=== PATIENT | female | born 1950 | race Caucasian/White ===

== ENCOUNTER 2019-07-15 18:44 | Inpatient (IN) ==
[2019-07-15 22:24] LABS: ABG Base Excess 7 mEq/L (-2 to 3); ABG HCO3 35 mEq/L (21-27); ABG Oxygen Saturation 91 % (95-98); ABG PCO2 61 mmHg (35-45); ABG PH 7.37 pH Units (7.32-7.45); ABG PO2 64 mmHg (85-104); ABG TCO2 37 mEq/L (20-26); Blood Gas Modality ASSIST CONTROL; Blood Gas PEEP 5 cm H2O; Blood Gas VT 450 cc
[2019-07-15] MEDS: Ipratropium/Albuterol Neb 3 ML IH SCH (22:29)
--- NOTE | 2019-07-15 22:30 | Internal Med History&Physical ---
Date of Encounter: 07/15/19 Time of Encounter: 22:18 Internal Medicine - H&P: HPI Chief complaint: SOB History of present illness: Ms. Hanks is a 69 year old female with a past medical history of severe COPD O2 dependent on 3 L home oxygen, CHF, active smoker, hypertension, and Graves' disease who initially presented to Hospital ED with complaints of worsening shortness of breath associated with increased wheezing and cough. Patient noted to be in moderate respiratory distress with diffuse wheezing on arrival. Patient had been placed on CPAP by EMS en route. Patient reportedly became progressively tachypneic while in the ED. Apparently failed trial of BiPAP and subsequently intubated. ABG was obtained showing pH of 7.25 and PCO2 of 95 suggestive of hypercapnic respiratory failure. Blood pressure transiently dropped shortly after intubation with propofol for sedation and central IJ catheter was placed and patient was started on levofed. Patient was given DuoNeb's 1, Solu-Medrol 125 2 g of magnesium and Levaquin IV. Patient transferred to [facility] for further management. On arrival patient was intubated and sedated on propofol. Patient was given paralytic and fentanyl in route due to increased arousal and agitation. On arrival patient was hypertensive with a systolic blood pressure in the 160s, currently off pressor support. Vitals otherwise stable. We will continue management of likely COPD exacerbation. Internal Medicine - H&P: Meds ALPRAZolam [Xanax 0.25 MG Tablet] 0.25 mg PO TID PRN 07/16/19 [History] Acetylcysteine [S-Wlerbp-l-Cysteine] 600 mg PO BID 07/16/19 [History] Albuterol Sulfate [Ventolin Hfa] 2 puff PO QID PRN 07/16/19 [History] Aspirin 81 mg PO DAILY 07/16/19 [History] Azithromycin [Azithromycin 6-Tab Pack] 250 mg PO AD 07/16/19 [History] Budesonide/Formoterol 160/4.5 [Symbicort 160/4.5] 2 puff PO BID 07/16/19 [History] Furosemide [Lasix] 40 mg PO Q48H 07/16/19 [History] Ipratropium/Albuterol Neb [Duoneb] 3 ml IH QID PRN 07/16/19 [History] Levothyroxine [Synthroid] 75 mcg PO QAM 07/16/19 [History] Metoprolol Succinate [Toprol Xl] 100 mg PO BID 07/16/19 [History] Montelukast [Singulair] 10 mg PO DAILY PRN 07/16/19 [History] Potassium Chloride [Klor-Con 10] 10 meq PO Q48H 07/16/19 [History] Simvastatin [Zocor] 20 mg PO HS 07/16/19 [History] Umeclidinium [place] [Incruse Ellipta] 62.5 mcg IH DAILY 07/16/19 [History] amLODIPine [Norvasc] 5 mg PO DAILY 07/16/19 [History] Allergy/AdvReac Type Severity Reaction Status Date / Time No Known Allergies Allergy Verified 07/15/19 22:35 All Systems PM: A 10-system review of systems was performed and is negative for pertinent findings except as documented above in the HPI. - Constitutional Constitutional: no chills, no fever(s), no night sweats - EENT Eyes: no change in vision, no discharge, no pain, no photophobia Ears: no ear discharge, no ear pain, no tinnitus Nose, mouth and throat: no dysphagia, no nasal discharge, no neck pain, no sore throat - Cardiovascular Cardiovascular ROS IM: no chest pain, no diaphoresis, no dyspnea, no lightheadedness, no palpitations, no syncope - Respiratory Respiratory: no cough, no dyspnea, no wheezing, no excessive phlegm production - Gastrointestinal Gastrointestinal: no abdominal pain, no diarrhea, no hematemesis, no hematochezia, no melena, no nausea, no vomiting - Genitourinary Genitourinary: no change in urinary stream, no dysuria, no flank pain, no hematuria - Musculoskeletal Musculoskeletal ROS IM: no numbness, no tingling - Integumentary Integumentary IM: no rash, no unusual bruising - Neurological Neurological ROS: no confusion, no convulsions, no focal weakness, no numbness, no tingling, no tremor(s) - Hematologic/Lymphatic Hematologic/Lymphatic: no easy bruising - Constitutional Vitals: Resp Pulse Ox 16 99 07/15/19 21:55 07/15/19 21:55 Exam: General: Alert and oriented Skin:Normal color, no rash, no lesions. HEENT:EOM, pupils equal, round and reactive. Cardiovascular:Normal S1 & S2, no rubs, murmurs or gallops. No JVD. Pulse regular. Lungs:Normal breath sounds, no wheezes or crackles. Abdomen:Soft, non-tender, no rigidity. Extremities:No deformity, no edema or tenderness, no joint swelling or clubbing. Neurological:Normal cognition and motor skills. Pulses:Carotid and radial pulses normal +2. Rest of the physical exam is non contributory Internal Med - H&P Results - Labs CBC & Chem 7: 07/15/19 22:05 07/15/19 22:05 - Assessment and Plan (1) Acute respiratory failure with hypercapnia Current Visit: Yes Status: Acute Assessment and plan: ABG showing pH 7.25 and PCO2 of 95 in the setting of increased shortness of breath, wheezing and tachypnea consistent acute respiratory failure with hypercapnia secondary to COPD exacerbation status post intubation. -Continue mechanical ventilation -Repeat ABG and adjust ventilation settings accordingly -Continue management for COPD exacerbation (2) COPD exacerbation Current Visit: Yes Status: Acute Assessment and plan: History of O2 dependent COPD currently on 3 L nasal cannula at home presenting with findings consistent with COPD exacerbation with increased wheezing, cough and CO2 retention. Chest x-ray otherwise unremarkable. Patient had pulmonary function testing in 2018 which at this time showed severe to very severe airway obstruction with minimal response to bronchodilators. Although patient has documentation in her records as being an active smoker, I spoke with patient's granddaughter who stated that she currently lives with her uncle and as far as a no there been no reports of her smoking as of late. Unclear if there was a precipitating event however chest x-ray did not reveal any evidence of pne umonia. She does have a mild leukocytosis of 14. -Continue ventilation support -Repeat ABG -Continue scheduled duonebs -Continue steroids; monitor blood sugars -We will transition to azithromycin for antibiotic coverage. -We will obtain pro- calcitonin, respiratory viral panel, blood cultures and urine antigens -Consult to pulmonary critical care (3) Hypotension Current Visit: Yes Status: Acute Assessment and plan: Patient reported to be hypotensive status post intubation and sedation with propofol which I suspect was likely contributing to her hypotension.. On arrival patient was off pressors and is currently hypertensive with a systolic in the 160s. -At this time we will hold pressure support Qualifiers: Hypotension type: hypotension due to drug Qualified Code(s): I95.2 - Hypotension due to drugs (4) Hypertension Current Visit: Yes Status: Chronic Assessment and plan: History of hypertension. Currently hypertensive. -We will continue propofol and monitor blood pressure closely Qualifiers: Hypertension type: essential hypertension Qualified Code(s): I10 - Essential (primary) hypertension (5) Graves disease Current Visit: Yes Status: Acute (6) DVT prophylaxis Current Visit: Yes Status: Acute Assessment and plan: Subcutaneous heparin Over 30 minutes of critical care time was spent in the management of this patient - Time Spent With Patient Total time spent is greater than 50% in coordination of care (as documented) at patient's floor/unit and/or counseling patient:
[2019-07-15] MEDS: MethylPREDNISolone 40 MG/ML VIAL IVP SCH (23:06)
[2019-07-15] MEDS: *HR* Heparin 5,000 UNIT/ML VIAL SQ SCH (23:06)
[2019-07-15 23:30] LABS: Basophils % 0.2 %; Hematocrit 40.1 % (35.3-44.9); Hemoglobin 12.3 g/dL (11.5-15.4); Immature Granulocytes % 1.1 % (0-4); Lymphocytes # 0.4 K/mcL (0.6-4.6); Lymphocytes % 4.2 %; Mean Corpuscular HGB Conc 30.7 g/dL (31.6-35.5); Mean Corpuscular Hemoglobin 29.4 pg (28.0-33.3); Mean Corpuscular Volume 95.9 fL (83.0-100.0); Mean Platelet Volume 9.9 fL (9.4-12.4); Monocytes # 0.1 K/mcL (0.0-1.3); Monocytes % 1.1 %; Neutrophils # 9.7 K/mcL (1.6-8.9); Platelet Count 238 K/mcL (140-400); Red Blood Count 4.18 M/mcL (3.82-4.97); Red Cell Distribution Width 14.6 % (11.5-14.5); Segmented Neutrophils % 93.4 %; White Blood Count 10.3 K/mcL (4.3-11.1)
[2019-07-15 23:32] LABS: Bilirubin,Urine Negative (Negative); Blood,Urine Large (Negative); Clarity,Urine Clear (Clear); Color,Urine Yellow (Yellow); Glucose,Urine (UA) 100 mg/dL (Normal); Ketones,Urine 15 mg/dL (Negative); Leukocyte Esterase,Urine Negative (Negative); Nitrite,Urine Negative (Negative); PH,Urine 5.5 pH Units (5.0-8.0); Protein,Urine 30 mg/dL (Neg-Trace); Specific Gravity,Urine 1.022 (1.010-1.025); Urobilinogen,Urine Normal (Normal)
[2019-07-15 23:33] LABS: RBC,Urine 30-50 per hpf (0-3); Squamous Epithelial Cell,Urine Many per lpf (None-Few); WBC,Urine 0-3 per hpf (0-3)
[2019-07-15 23:38] LABS: INR 1.1; Prothrombin Time 12.8 Seconds (9.4-12.1)
[2019-07-15 23:40] LABS: Activated Partial Thrombo Time 33.5 Seconds (26.0-36.0)
[2019-07-15 23:45] LABS: Bacteria,Urine Few per hpf (None-Few); Hyaline Casts,Urine Moderate per lpf (None-Few)
[2019-07-15 23:48] LABS: Alanine Aminotransferase 11 Units/L (7-52); Albumin/Globulin Ratio 1.5 (1.1-2.2); Alkaline Phosphatase 73 Units/L (34-104); Aspartate Amino Transferase 15 Units/L (13-39); BUN/Creatinine Ratio 20 (6-26); Bilirubin,Total 0.6 mg/dL (0.3-1.0); Blood Urea Nitrogen 15 mg/dL (8-23); Calcium 8.3 mg/dL (8.6-10.3); Carbon Dioxide 33 mEq/L (23-29); Chloride 98 mEq/L (98-107); Globulin 2.6 g/dL (2.4-3.5); Glucose 150 mg/dL (70-105); Osmolality,Calculated 294 (280-300); Sodium 140 mEq/L (136-145); Total Protein 6.6 g/dL (6.4-8.9); eGFR For African Americans > 60 (> 60); eGFR For Non-African Americans > 60 (> 60)
[2019-07-16 01:57] LABS: Adenovirus Not Detected (Not Detect); Bordetella Pertussis Not Detected (Not Detect); Chlamydophila pneumoniae Not Detected (Not Detect); Coronavirus 229E Not Detected (Not Detect); Coronavirus HKU1 Not Detected (Not Detect); Coronavirus NL63 Not Detected (Not Detect); Coronavirus OC43 Not Detected (Not Detect); Human Metapneumovirus Not Detected (Not Detect); Human Rhinovirus/Enterovirus DETECTED (Not Detect); Influenza A Subtype 2009 H1 Not Detected (Not Detect); Influenza A Untypeable Not Detected (Not Detect); Influenza B Not Detected (Not Detect); Mycoplasma pneumoniae Not Detected (Not Detect); Parainfluenza Virus 1 Not Detected (Not Detect); Parainfluenza Virus 2 Not Detected (Not Detect); Parainfluenza Virus 3 Not Detected (Not Detect); Parainfluenza Virus 4 Not Detected (Not Detect); Respiratory Syncytial Virus Not Detected (Not Detect)
[2019-07-16] MEDS: Ipratropium/Albuterol Neb 3 ML IH SCH ×4 (03:42→22:06)
[2019-07-16 05:05] LABS: ABG Base Excess 9 mEq/L (-2 to 3); ABG HCO3 36 mEq/L (21-27); ABG Oxygen Saturation 93 % (95-98); ABG PCO2 61 mmHg (35-45); ABG PH 7.39 pH Units (7.32-7.45); ABG PO2 69 mmHg (85-104); ABG TCO2 38 mEq/L (20-26); Blood Gas Modality PRVC; Blood Gas PEEP 5 cm H2O; Blood Gas VT 450 cc
[2019-07-16] MEDS: *HR* Heparin 5,000 UNIT/ML VIAL SQ SCH ×3 (05:09→22:09)
[2019-07-16] MEDS: MethylPREDNISolone 40 MG/ML VIAL IVP SCH ×3 (05:09→22:09)
[2019-07-16] MEDS: Azithromycin 500 MG in 0.9 % Sodium Chloride 250 ML IVPB SCH (08:40)
[2019-07-16] MEDS ORDERED: Artificial Tears SOLN 15 ML BOTTLE BOTH EYES PRN (09:15)
--- NOTE | 2019-07-16 09:43 | Pulmonology Consult Note ---
<Alejandro Kim - Last Filed: 07/16/19 12:05> Date of Encounter: 07/16/19 Time of Encounter: 09:41 History of Present Illness Consult date: 07/16/19 Reason for consult: dyspnea, cough, COPD Chief complaint: Respiratory failure History of present illness: Patient is a 69-year-old female with a past medical history of COPD, CHF, hypertension and Graves' disease on 3 L home oxygen via nasal cannula, the patient also takes acetylcysteine, DuoNeb nebs, Lasix, Symbicort, Synthroid, Ventolin and Singulair for home medications. The patient presented to an outside ED due to recent worsening shortness of breath as well as wheezing and cough patient was CPAP by EMS in route to the hospital but was not tolerating the BiPAP well patient was noted to be tachypneic with hypercapnic respiratory failure and thus was emergently intubated in the ED. The patient was noted to be hypotensive likely due to paralysis and sedation and thus a central right sided internal jugular catheter was placed and the patient was started on Levophed drip. Patient was then transferred to [facility] ICU for further management. Upon my initial evaluation this morning the patient is intubated and mechanically sedated, she is noted to have significant exophthalmos consistent with her history of Graves' disease. Cardiac auscultation reveals regular rate and rhythm no murmurs gallops or rubs S1 plus S2 without S3 or S4, there is diffuse wheezing noted to pulmonary auscultation in all lobes. Patient's abdomen soft nontender nondistended, no evidence of peripheral edema pulses are strong. Assessment and plan: 1 acute rest for a failure with hypercapnia. ABG shows respiratory acidosis likely secondary to COPD exacerbation in the sett ing of rhinovirus infection. Continue mechanical ventilation with repeat ABGs. Continue nebulizers plus steroids. 2. COPD exacerbation. Patient with severe COPD on 3 L nasal cannula at home See plan as stated above Azithromycin for antibiotic anti-inflammatory coverage 3. Hypotension. Likely secondarily to intubation and sedation with paralysis. Patient's vitals are currently stable. 4. Graves' disease: Check TSH, T3/T4 Hold levothyroxine likely will restart tomorrow. 5. DVT prophylaxis: Subcutaneous heparin 5000 units 3 times a day. Past Med Surg Social Fam HX - Social History Smoking Status: Former smoker Medications and Allergies ALPRAZolam [Xanax 0.25 MG Tablet] 0.25 mg PO TID PRN 07/16/19 [History] Acetylcysteine [X-Ivauqx-n-Cysteine] 600 mg PO BID 07/16/19 [History] Albuterol Sulfate [Ventolin Hfa] 2 puff PO QID PRN 07/16/19 [History] Aspirin 81 mg PO DAILY 07/16/19 [History] Azithromycin [Azithromycin 6-Tab Pack] 250 mg PO AD 07/16/19 [History] Budesonide/Formoterol 160/4.5 [Symbicort 160/4.5] 2 puff PO BID 07/16/19 [History] Furosemide [Lasix] 40 mg PO Q48H 07/16/19 [History] Ipratropium/Albuterol Neb [Duoneb] 3 ml IH QID PRN 07/16/19 [History] Levothyroxine [Synthroid] 75 mcg PO QAM 07/16/19 [History] Metoprolol Succinate [Toprol Xl] 100 mg PO BID 07/16/19 [History] Montelukast [Singulair] 10 mg PO DAILY PRN 07/16/19 [History] Potassium Chloride [Klor-Con 10] 10 meq PO Q48H 07/16/19 [History] Simvastatin [Zocor] 20 mg PO HS 07/16/19 [History] Umeclidinium [place] [Incruse Ellipta] 62.5 mcg IH DAILY 07/16/19 [History] amLODIPine [Norvasc] 5 mg PO DAILY 07/16/19 [History] Allergy/AdvReac Type Severity Reaction Status Date / Time No Known Allergies Allergy Verified 07/15/19 22:35 ROS unobtainable: due to endotracheal tube, due to mental status All Systems: The remainder of the systems were reviewed and are negative Physical Examination Vital Signs: Vital Signs, Last 4 Hours Temp Pulse Resp BP Pulse Ox 07/16/19 09:12 16 118/63 94 07/16/19 09:00 98.8 F 93 17 118/63 96 07/16/19 08:00 98.4 F 89 16 105/60 98 07/16/19 07:16 16 109/63 97 07/16/19 07:00 92 16 109/63 98 07/16/19 06:00 92 16 110/62 95 General appearance: no acute distress, other (Intubated and mechanically ventilated) Eyes: nonicteric, injected ENT: oropharynx moist Auscultation: bilateral: wheezes Cardiovascular: regular rate and rhythm Gastrointestinal: normoactive bowel sounds, soft, non-tender, non-distended Integumentary: normal Extremities: no cyanosis, pulses normal, no ischemia or petechiae pupils equal and round, unable to assess due to mental status Ventilator Settings Ventilator Settings: Ventilator Settings, Last 8 Hours Ventilator Tidal Volume 400 Setting Ventilator Tidal Volume 400 Setting Ventilator Tidal Volume 400 Setting Ventilator Tidal Volume 450 Setting Ventilator Tidal Volume 450 Setting Ventilator Tidal Volume 450 Setting Ventilator Tidal Volume 450 Setting Ventilator Tidal Volume 450 Setting Ventilator Tidal Volume 450 Setting Ventilator Tidal Volume 450 Setting Ventilator Tidal Volume 400 Setting Ventilator Tidal Volume 400 Setting Ventilator Tidal Volume 400 Setting Ventilator Tidal Volume 400 Setting Ventilator Respiratory Rate 16 Setting Ventilator Respiratory Rate 16 Setting Ventilator Respiratory Rate 16 Setting Ventilator Respiratory Rate 16 Setting Ventilator Respiratory Rate 16 Setting Ventilator Respiratory Rate 16 Setting Ventilator Respiratory Rate 16 Setting Ventilator Respiratory Rate 16 Setting Ventilator Respiratory Rate 16 Setting Ventilator Respiratory Rate 16 Setting Ventilator Respiratory Rate 16 Setting Ventilator Respiratory Rate 16 Setting Ventilator Respiratory Rate 16 Setting Actual Respiratory Rate 16 Actual Respiratory Rate 16 Actual Respiratory Rate 16 Actual Respiratory Rate 16 Actual Respiratory Rate 16 Actual Respiratory Rate 16 Actual Respiratory Rate 16 Actual Respiratory Rate 16 Actual Respiratory Rate 16 Actual Respiratory Rate 18 Actual Respiratory Rate 16 Actual Respiratory Rate 16 Positive End Expiratory 5 Pressure Positive End Expiratory 5 Pressure Positive End Expiratory 5 Pressure Positive End Expiratory 5 Pressure Positive End Expiratory 5 Pressure Positive End Expiratory 5 Pressure Positive End Expiratory 5 Pressure Positive End Expiratory 5 Pressure Positive End Expiratory 5 Pressure Positive End Expiratory 5 Pressure Positive End Expiratory 5 Pressure Positive End Expiratory 5 Pressure Positive End Expiratory 5 Pressure Peak Inspiratory Airway 27 Pressure Peak Inspiratory Airway 28 Pressure Peak Inspiratory Airway 27 Pressure Peak Inspiratory Airway 28 Pressure Peak Inspiratory Airway 28 Pressure Peak Inspiratory Airway 29 Pressure Peak Inspiratory Airway 28 Pressure Peak Inspiratory Airway 28 Pressure Peak Inspiratory Airway 34 Pressure Peak Inspiratory Airway 48 Pressure Peak Inspiratory Airway 36 Pressure Peak Inspiratory Airway 31 Pressure Results - Laboratory Findings CBC and BMP: 07/15/19 22:05 07/15/19 22:05 ABG ABG pH 7.39 pH Units (7.32-7.45) 07/16/19 05:02 ABG pCO2 61 mmHg (35-45) H 07/16/19 05:02 ABG pO2 69 mmHg (85-104) L 07/16/19 05:02 ABG O2 Saturation 93 % (95-98) L 07/16/19 05:02 PT/INR, D-dimer PT 12.8 Seconds (9.4-12.1) H 07/15/19 22:17 Abnormal lab findings: Abnormal lab results MCHC 30.7 g/dL (31.6-35.5) L 07/15/19 22:05 RDW 14.6 % (11.5-14.5) H 07/15/19 22:05 Neutrophils # 9.7 K/mcL (1.6-8.9) H 07/15/19 22:05 Lymphocytes # 0.4 K/mcL (0.6-4.6) L 07/15/19 22:05 PT 12.8 Seconds (9.4-12.1) H 07/15/19 22:17 ABG pCO2 61 mmHg (35-45) H 07/16/19 05:02 ABG pO2 69 mmHg (85-104) L 07/16/19 05:02 ABG HCO3 36 mEq/L (21-27) H 07/16/19 05:02 ABG Total CO2 38 mEq/L (20-26) H 07/16/19 05:02 ABG O2 Saturation 93 % (95-98) L 07/16/19 05:02 ABG Base Excess 9 mEq/L (-2 to 3) H 07/16/19 05:02 Carbon Dioxide 33 mEq/L (23-29) H 07/15/19 22:05 Glucose 150 mg/dL (70-105) H 07/15/19 22:05 POC Glucose 167 mg/dL (70-99) H 07/15/19 21:55 Calcium 8.3 mg/dL (8.6-10.3) L 07/15/19 22:05 B-Natriuretic Peptide 126 pg/mL (Less than 100) H 07/15/19 22:18 Urine Protein 30 mg/dL (Neg-Trace) H 07/15/19 23:21 Urine Glucose (UA) 100 mg/dL (Normal) H 07/15/19 23:21 Urine Ketones 15 mg/dL (Negative) H 07/15/19 23:21 Urine Blood Large (Negative) H 07/15/19 23:21 Urine Microscopic RBC 30-50 per hpf (0-3) H 07/15/19 23:21 Ur Squamous Epith Cells Many per lpf (None-Few) H 07/15/19 23:21 Hyaline Casts Moderate per lpf (None-Few) H 07/15/19 23:21 Entero/Rhino (PCR) DETECTED (Not Detect) A 07/16/19 00:16 - Microbiology Findings Microbiology Findings: Microbiology, Last 48 Hours 07/15/19 23:21 Sputum Culture - Preliminary Sputum 07/15/19 23:46 Blood Culture - Preliminary Peripheral Venipuncture Culture is incubating and being continuously monitored for growth. Final report to follow. 07/15/19 23:46 Blood Culture - Preliminary Peripheral Venipuncture Culture is incubating and being continuously monitored for growth. Final report to follow. 07/15/19 23:16 Legionella Antigen - Final Urine,Catheterized (Straight) Streptococcus pneumoniae Antigen (M - Final - Clinical Findings Intake & Output: Intake & Output 07/15/19 07/16/19 07/16/19 23:59 07:59 15:59 Intake Total 100 / 200 100 / 200 Output Total 150 / 150 175 / 175 Balance -150 / -150 -75 / 25 100 / 25 Weight 79.8 kg 79.8 kg Consult Discharge Plan - Plan Referrals: NONE,PCP [Primary Care Provider] - <Daniel Candelaria - Last Filed: 07/16/19 23:39> Date of Encounter: 07/16/19 All Systems: The remainder of the systems were reviewed and are negative Physical Examination Vital Signs: Vital Signs, Last 4 Hours Temp Pulse Resp BP Pulse Ox 07/16/19 22:07 19 121/61 97 07/16/19 22:00 89 16 121/61 97 07/16/19 21:00 90 18 124/67 94 07/16/19 20:09 97.5 F L 07/16/19 20:00 96 18 122/68 95 07/16/19 19:55 16 116/67 94 Ventilator Settings Ventilator Settings: Ventilator Settings, Last 8 Hours Ventilator Tidal Volume 400 Setting Ventilator Tidal Volume 400 Setting Ventilator Tidal Volume 400 Setting Ventilator Tidal Volume 400 Setting Ventilator Tidal Volume 400 Setting Ventilator Tidal Volume 400 Setting Ventilator Tidal Volume 400 Setting Ventilator Tidal Volume 400 Setting Ventilator Tidal Volume 400 Setting Ventilator Tidal Volume 400 Setting Ventilator Tidal Volume 400 Setting Ventilator Respiratory Rate 16 Setting Ventilator Respiratory Rate 16 Setting Ventilator Respiratory Rate 16 Setting Ventilator Respiratory Rate 16 Setting Ventilator Respiratory Rate 16 Setting Ventilator Respiratory Rate 16 Setting Ventilator Respiratory Rate 16 Setting Ventilator Respiratory Rate 16 Setting Ventilator Respiratory Rate 16 Setting Ventilator Respiratory Rate 16 Setting Ventilator Respiratory Rate 16 Setting Actual Respiratory Rate 19 Actual Respiratory Rate 18 Actual Respiratory Rate 18 Actual Respiratory Rate 16 Actual Respiratory Rate 16 Actual Respiratory Rate 16 Actual Respiratory Rate 16 Actual Respiratory Rate 16 Positive End Expiratory 5 Pressure Positive End Expiratory 5 Pressure Positive End Expiratory 5 Pressure Positive End Expiratory 5 Pressure Positive End Expiratory 5 Pressure Positive End Expiratory 5 Pressure Positive End Expiratory 5 Pressure Positive End Expiratory 5 Pressure Positive End Expiratory 5 Pressure Positive End Expiratory 5 Pressure Positive End Expiratory 5 Pressure Peak Inspiratory Airway 29 Pressure Peak Inspiratory Airway 30 Pressure Peak Inspiratory Airway 32 Pressure Peak Inspiratory Airway 34 Pressure Peak Inspiratory Airway 35 Pressure Peak Inspiratory Airway 34 Pressure Peak Inspiratory Airway 35 Pressure Peak Inspiratory Airway 33 Pressure Peak Inspiratory Airway 35 Pressure Peak Inspiratory Airway 31 Pressure Peak Inspiratory Airway 35 Pressure Results - Laboratory Findings CBC and BMP: 07/15/19 22:05 07/15/19 22:05 ABG ABG pH 7.42 pH Units (7.32-7.45) 07/16/19 11:21 ABG pCO2 56 mmHg (35-45) H 07/16/19 11:21 ABG pO2 100 mmHg (85-104) 07/16/19 11:21 ABG O2 Saturation 98 % (95-98) 07/16/19 11:21 PT/INR, D-dimer PT 12.8 Seconds (9.4-12.1) H 07/15/19 22:17 Abnormal lab findings: Abnormal lab results MCHC 30.7 g/dL (31.6-35.5) L 07/15/19 22:05 RDW 14.6 % (11.5-14.5) H 07/15/19 22:05 Neutrophils # 9.7 K/mcL (1.6-8.9) H 07/15/19 22:05 Lymphocytes # 0.4 K/mcL (0.6-4.6) L 07/15/19 22:05 PT 12.8 Seconds (9.4-12.1) H 07/15/19 22:17 ABG pCO2 56 mmHg (35-45) H 07/16/19 11:21 ABG pO2 69 mmHg (85-104) L 07/16/19 05:02 ABG HCO3 36 mEq/L (21-27) H 07/16/19 11:21 ABG Total CO2 38 mEq/L (20-26) H 07/16/19 11:21 ABG O2 Saturation 93 % (95-98) L 07/16/19 05:02 ABG Base Excess 9 mEq/L (-2 to 3) H 07/16/19 11:21 Carbon Dioxide 33 mEq/L (23-29) H 07/15/19 22:05 Glucose 150 mg/dL (70-105) H 07/15/19 22:05 POC Glucose 167 mg/dL (70-99) H 07/15/19 21:55 Calcium 8.3 mg/dL (8.6-10.3) L 07/15/19 22:05 B-Natriuretic Peptide 126 pg/mL (Less than 100) H 07/15/19 22:18 Free T3 2.23 pg/mL (2.50-3.90) L 07/16/19 09:57 Urine Protein 30 mg/dL (Neg-Trace) H 07/15/19 23:21 Urine Glucose (UA) 100 mg/dL (Normal) H 07/15/19 23:21 Urine Ketones 15 mg/dL (Negative) H 07/15/19 23:21 Urine Blood Large (Negative) H 07/15/19 23:21 Urine Microscopic RBC 30-50 per hpf (0-3) H 07/15/19 23:21 Ur Squamous Epith Cells Many per lpf (None-Few) H 07/15/19 23:21 Hyaline Casts Moderate per lpf (None-Few) H 07/15/19 23:21 Entero/Rhino (PCR) DETECTED (Not Detect) A 07/16/19 00:16 - Microbiology Findings Microbiology Findings: Microbiology, Last 48 Hours 07/15/19 23:21 Sputum Culture - Preliminary Sputum 07/15/19 23:46 Blood Culture - Preliminary Peripheral Venipuncture Culture is incubating and being continuously monitored for growth. Final report to follow. 07/15/19 23:46 Blood Culture - Preliminary Peripheral Venipuncture Culture is incubating and being continuously mon itored for growth. Final report to follow. 07/15/19 23:16 Legionella Antigen - Final Urine,Catheterized (Straight) Streptococcus pneumoniae Antigen (M - Final - Clinical Findings Intake & Output: Intake & Output 07/16/19 07/16/19 07/16/19 07:59 15:59 23:59 Intake Total 100 / 1663.2 450 / 1663.2 1113.2 / 1663.2 Output Total 175 / 475 100 / 475 200 / 475 Balance -75 / 1188.2 350 / 1188.2 913.2 / 1188.2 Weight 79.8 kg - Attending Attestation I saw and evaluated this patient and my medical decision-making was reviewed with the Resident Physician. I agree with the documented findings, disposition and treatment plan as described except to the extent set forth below. We independently had [id number] contact with the patient I spent 45 minutes of Critical Care time with this patient. It involved decision making of high complexity to assess, manipulate, and support vital organ system failure and/or to prevent further life threatening deterioration of the patient's condition. The time involved in the performance of separately reportable procedures was not counted toward critical care time. Patient seen and examined at bedside Labs, radiology, chart personally reviewed. Management was reviewed during multidisciplinary critical care rounds. CHECKING DEPARTMENT SUPERVISOR: Patient is sedated, intubated and mechanical ventilated. Pulm: Patient presented with bilateral exacerbation of COPD Patient has acute on chronic hypoxic hypercapnic respiratory failure. To continue with azithromycin, steroids will review in 24 hours and try spontaneous breathing trial patient should be able to be extubated tomorrow . FEN-GI: We will keep her nothing by mouth today and will try to extubate tomorrow Renal: Labs and output reviewed ID: No active infectious issues. Heme/Onc: Labs reviewed Endo: Glucose Monitored Integ/MSK: Skin Care per routine ICU Nursing Protocol to prevent ulcers. Lines: All lines examined without evidence of infection : Dispo: critically ill CODE: Full code
[2019-07-16 10:46] LABS: Thyroid Stimulating Hormone 0.345 mcIU/mL (0.340-5.600)
[2019-07-16 10:48] LABS: Triiodothyronine (T3) Free 2.23 pg/mL (2.50-3.90)
[2019-07-16] MEDS: 0.9 % Sodium Chloride 1,000 ML IVC SCH ×2 (11:03→20:29)
[2019-07-16] MEDS: Artificial Tears SOLN 15 ML BOTTLE BOTH EYES SCH ×4 (11:04→23:52)
[2019-07-16] MEDS: Chlorhexidine Rinse 15 ML MOUTHWASH MM SCH ×2 (11:04→19:41)
[2019-07-16] MEDS: Pantoprazole 40 MG VIAL IVP SCH (11:05)
[2019-07-16 11:26] LABS: ABG Base Excess 9 mEq/L (-2 to 3); ABG HCO3 36 mEq/L (21-27); ABG Oxygen Saturation 98 % (95-98); ABG PCO2 56 mmHg (35-45); ABG PH 7.42 pH Units (7.32-7.45); ABG PO2 100 mmHg (85-104); ABG TCO2 38 mEq/L (20-26); Blood Gas Modality ASSIST CONTROL; Blood Gas PEEP 5 cm H2O; Blood Gas VT 400 cc
--- NOTE | 2019-07-16 13:24 | Internal Med Progress Note ---
Hospitalist Progress Note - Encounter Date of Encounter: 07/16/19 Time of Encounter: 08:40 - Subjective Interval History: Chart reviewed and case discussed with Dr. Candelaria. I examined patient independently as well. Patient remains on ventilator for now, and we'll plan on resting her today and try to wean off ventilator tomorrow. No family present an d we are unable to obtain history form patient at this time. - Exam Vitals: Temp Pulse Resp BP Pulse Ox 98.3 F 94 16 100/58 94 07/16/19 12:00 07/16/19 12:00 07/16/19 12:00 07/16/19 12:00 07/16/19 12:00 Exam: General; intubated and sedated HEENT: ETT in place; no OG/NG; neck supple; wide neck; micrognathia noted on exam CHEST: Coarse wheezes and rhonchi throughout with prolonged expiratory phase; no rales; fair air exchange. Abdomen: soft, NT, ND, no HSMG, + BS Ext: no CCE; pulses equal; full ROM Neuro: sedated; responds to painful stimuli Skin: warm and dry - Assessment and Plan (1) COPD exacerbation Current Visit: Yes Status: Acute Assessment and Plan: 1. Wean steroids, continue aerosols, wean oxygen. 2. Vent management/wean per pulmonary. 3. Continue Zithromax for now; deescalate in a day or two based upon clinical grounds. 4. Likely viral etiology (rhinovirus). (2) Acute respiratory failure with hypercapnia Current Visit: Yes Status: Acute Assessment and Plan: 1. Vent management per pulmonary. 2. Discussed and rounded with Dr. Candelaria. 3. As above. (3) Graves disease Current Visit: Yes Status: Acute Assessment and Plan: 1. Resume thyorid replacement tomorrow orally if extubated; IV if unable to give PO. 2. Monitor TSH. (4) Hypertension Current Visit: Yes Status: Chronic Assessment and Plan: 1. Monitor BP and adjust meds as necessary. (5) DVT prophylaxis Current Visit: Yes Status: Acute Assessment and Plan: 1. Heparin SQ. - Time Spent with Patient Total time spent is greater than 50% in coordination of care (as documented) at patient's floor/unit and/or counseling patient: 25 - 35 minutes Plan of Care Discussed with: other (Dr. Candelaria, MDR team) Internal Medicine: Result - Labs CBC & Chem 7: 07/15/19 22:05 07/15/19 22:05 Labs: Short CBC 07/15/19 Range/Units 22:05 WBC 10.3 (4.3-11.1) K/mcL Hgb 12.3 (11.5-15.4) g/dL Hct 40.1 (35.3-44.9) % Plt Count 238 (140-400) K/mcL Neutrophils # 9.7 H (1.6-8.9) K/mcL BMP 07/15/19 22:05 Sodium 140 Potassium 4.0 Chloride 98 Carbon Dioxide 33 H BUN 15 Creatinine 0.75 Glucose 150 H Calcium 8.3 L Liver Function 07/15/19 Range/Units 22:05 Total Bilirubin 0.6 (0.3-1.0) mg/dL AST 15 (13-39) Units/L ALT 11 (7-52) Units/L Alkaline Phosphatase 73 (34-104) Units/L Albumin 4.0 (3.5-5.7) g/dL Urine 07/15/19 Range/Units 23:21 Urine Color Yellow (Yellow) Urine Clarity Clear (Clear) Urine pH 5.5 (5.0-8.0) pH Units Ur Specific [place] 1.022 (1.010-1.025) Urine Protein 30 H (Neg-Trace) mg/dL Urine Glucose (UA) 100 H (Normal) mg/dL - ABG Interpretation ABG results: ABG ABG pH 7.42 pH Units (7.32-7.45) 07/16/19 11:21 ABG pCO2 56 mmHg (35-45) H 07/16/19 11:21 ABG pO2 100 mmHg (85-104) 07/16/19 11:21 ABG O2 Saturation 98 % (95-98) 07/16/19 11:21 PT/INR, D-dimer PT 12.8 Seconds (9.4-12.1) H 07/15/19 22:17 - Impressions Impressions Chest X-Ray 07/15/19 22:05 IMPRESSION: 1. The tip of the enteric tube is in the distal esophagus. The tube needs to be advanced approximately 20 cm. 2. The endotracheal tube tip is 3-4 cm above the brenda. 3. No pneumothorax after line placement. 4. Clear lungs. D/ / Carter Lopez MD / Carter Lopez MD Interpreting Provider: Carter Lopez MD Consult Discharge Plan - Plan Referrals: NONE,PCP [Primary Care Provider] - (4) Hypertension Qualifiers: Hypertension type: essential hypertension Qualified Code(s): I10 - Essential (primary) hypertension
[2019-07-16] MEDS: FentaNYL (PF) 1,000 MCG in 0.9 % Sodium Chloride 80 ML IVC SCH (17:09)
[2019-07-16] MEDS ORDERED: Piperacillin/Tazobactam 3.375 GM in 0.9 % Sodium Chloride Mini Bag 100 ML IVPB SCH (18:00)
[2019-07-17] MEDS: FentaNYL (PF) 1,000 MCG in 0.9 % Sodium Chloride 80 ML IVC SCH ×2 (00:05→06:50)
[2019-07-17 04:05] LABS: BUN/Creatinine Ratio 29 (6-26); Basophils % 0.1 %; Blood Urea Nitrogen 19 mg/dL (8-23); Calcium 7.9 mg/dL (8.6-10.3); Carbon Dioxide 33 mEq/L (23-29); Chloride 102 mEq/L (98-107); Glucose 136 mg/dL (70-105); Hematocrit 33.2 % (35.3-44.9); Hemoglobin 10.1 g/dL (11.5-15.4); Immature Granulocytes % 0.8 % (0-4); Lymphocytes # 0.5 K/mcL (0.6-4.6); Mean Corpuscular HGB Conc 30.4 g/dL (31.6-35.5); Mean Corpuscular Hemoglobin 29.3 pg (28.0-33.3); Mean Corpuscular Volume 96.2 fL (83.0-100.0); Mean Platelet Volume 10.1 fL (9.4-12.4); Monocytes # 0.2 K/mcL (0.0-1.3); Neutrophils # 9.8 K/mcL (1.6-8.9); Osmolality,Calculated 292 (280-300); Platelet Count 225 K/mcL (140-400); Potassium 4.2 mEq/L (3.5-5.1); Red Blood Count 3.45 M/mcL (3.82-4.97); Red Cell Distribution Width 14.8 % (11.5-14.5); Segmented Neutrophils % 92.1 %; Sodium 139 mEq/L (136-145); White Blood Count 10.6 K/mcL (4.3-11.1); eGFR For African Americans > 60 (> 60); eGFR For Non-African Americans > 60 (> 60)
[2019-07-17 04:38] LABS: ABG Base Excess 7 mEq/L (-2 to 3); ABG HCO3 36 mEq/L (21-27); ABG Oxygen Saturation 89 % (95-98); ABG PCO2 70 mmHg (35-45); ABG PH 7.32 pH Units (7.32-7.45); ABG PO2 65 mmHg (85-104); ABG TCO2 38 mEq/L (20-26); Blood Gas Modality ASSIST CONTROL; Blood Gas PEEP 5 cm H2O; Blood Gas VT 400 cc
[2019-07-17] MEDS: 0.9 % Sodium Chloride 1,000 ML IVC SCH ×4 (05:15→23:17)
[2019-07-17] MEDS: Artificial Tears SOLN 15 ML BOTTLE BOTH EYES SCH ×6 (05:46→23:17)
[2019-07-17] MEDS: Ipratropium/Albuterol Neb 3 ML IH SCH ×4 (05:47→22:08)
[2019-07-17] MEDS: *HR* Heparin 5,000 UNIT/ML VIAL SQ SCH ×3 (05:56→21:05)
[2019-07-17] MEDS: MethylPREDNISolone 40 MG/ML VIAL IVP SCH ×2 (05:56→13:19)
--- NOTE | 2019-07-17 05:56 | Event Note ---
Date of Encounter: 07/17/19 Time of Encounter: 05:56 Critical ABG result is reported with a pH of 7.32 and PCO2 70 suggesting worsening respiratory acidosis. I examined the patient and noted the was sedated, breathing at the set vent rate of 16. I advised discontinuation of propofol to allow the patient wake up more to take more spontaneous breaths and increasing the tidal volume to 450. Will order a repeat ABG to be done at 0700hrs.
[2019-07-17] MEDS ORDERED: Dexmedetomidine HCl 400 MCG/100 ML MLS IVC ONE (06:24)
[2019-07-17] MEDS: Dexmedetomidine HCl 400 MCG/100 ML MLS IVC SCH ×2 (06:46→11:26)
--- NOTE | 2019-07-17 06:51 | Pulmonology Progress Note ---
<JahJose Miguel Florentino - Last Filed: 07/17/19 07:35> Date of Encounter: 07/17/19 Time of Encounter: 06:51 Assessment and Plan (1) Acute respiratory failure with hypercapnia Current Visit: Yes Status: Acute ABG with respiratory acidosis likely secondary to COPD exacerbation in the setting of rhinovirus infection. Currently on mechanical ventilation Latest ABG of 7.37 with CO2 63, O2 82, HCO3 36, and O2 saturation of 95% Ventilator setting of RR 16, FiO2 of 40, Tidal Volume of 450, and PEEP 5. -Duonebs and Solumedrol 40 mg Q8H -Azithromycin Daily -Plan for potential extubation today (2) COPD exacerbation Current Visit: Yes Status: Acute Patient with severe COPD on 3 L nasal cannula at home See plan as stated above Azithromycin for antibiotic anti-inflammatory coverage (3) Hypertension Current Visit: Yes Status: Chronic Latest BP of 146/80 On Toprol Xl 100 mg BID, Norvasc 5 mg, lasix 40 mg Q48H -BP currently stable, continue to monitor -We will restart home medications as patient is weaned off vent and clinically stable Qualifiers: Hypertension type: essential hypertension Qualified Code(s): I10 - Essential (primary) hypertension (4) Graves disease Current Visit: Yes Status: Acute TSH of 0.345 Free T3/T4 of 2.23 and 0.95 -Restart pt on home Levothyroxine dose of 75 mcg (5) DVT prophylaxis Current Visit: Yes Status: Acute Heparin SubQ Subjective Interval history: Patient is currently intubated, but propofol stopped and patient was awake, resting comfortably. Objective PUL Vital signs: Last Vital Signs Temp 98.2 F 07/17/19 00:00 Pulse 128 07/17/19 06:00 Resp 17 07/17/19 06:01 BP 146/80 07/17/19 06:01 Pulse Ox 96 07/17/19 06:01 General appearance: no acute distress Eyes: nonicteric ENT: other (ET tube in place) Neck: no lymphadenopathy, no JVD Effort: normal Auscultation: bilateral: clear Cardiovascular: regular rate and rhythm Gastrointestinal: normoactive bowel sounds, soft, non-tender Integumentary: normal Extremities: no cyanosis, no edema Musculoskeletal: no deformities unable to assess due to mental status Ventilator Settings Ventilator Settings: Ventilator Settings, Last 8 Hours Ventilator Tidal Volume 450 Setting Ventilator Tidal Volume 450 Setting Ventilator Tidal Volume 450 Setting Ventilator Tidal Volume 400 Setting Ventilator Tidal Volume 400 Setting Ventilator Tidal Volume 400 Setting Ventilator Tidal Volume 400 Setting Ventilator Tidal Volume 400 Setting Ventilator Tidal Volume 400 Setting Ventilator Tidal Volume 400 Setting Ventilator Respiratory Rate 16 Setting Ventilator Respiratory Rate 16 Setting Ventilator Respiratory Rate 16 Setting Ventilator Respiratory Rate 16 Setting Ventilator Respiratory Rate 16 Setting Ventilator Respiratory Rate 16 Setting Ventilator Respiratory Rate 16 Setting Ventilator Respiratory Rate 16 Setting Ventilator Respiratory Rate 16 Setting Actual Respiratory Rate 18 Actual Respiratory Rate 21 Actual Respiratory Rate 16 Actual Respiratory Rate 16 Actual Respiratory Rate 16 Actual Respiratory Rate 16 Actual Respiratory Rate 16 Actual Respiratory Rate 22 Positive End Expiratory 5 Pressure Positive End Expiratory 5 Pressure Positive End Expiratory 5 Pressure Positive End Expiratory 5 Pressure Positive End Expiratory 5 Pressure Positive End Expiratory 5 Pressure Positive End Expiratory 5 Pressure Positive End Expiratory 5 Pressure Positive End Expiratory 5 Pressure Peak Inspiratory Airway 32 Pressure Peak Inspiratory Airway 17 Pressure Peak Inspiratory Airway 39 Pressure Peak Inspiratory Airway 31 Pressure Peak Inspiratory Airway 30 Pressure Peak Inspiratory Airway 32 Pressure Peak Inspiratory Airway 32 Pressure Peak Inspiratory Airway 35 Pressure Results - Laboratory Findings CBC and BMP: 07/17/19 04:00 07/17/19 04:00 ABG ABG pH 7.32 pH Units (7.32-7.45) 07/17/19 04:29 ABG pCO2 70 mmHg (35-45) H* 07/17/19 04:29 ABG pO2 65 mmHg (85-104) L 07/17/19 04:29 ABG O2 Saturation 89 % (95-98) L 07/17/19 04:29 PT/INR, D-dimer PT 12.8 Seconds (9.4-12.1) H 07/15/19 22:17 Abnormal lab findings: Abnormal lab results RBC 3.45 M/mcL (3.82-4.97) L 07/17/19 04:00 Hgb 10.1 g/dL (11.5-15.4) L D 07/17/19 04:00 Hct 33.2 % (35.3-44.9) L 07/17/19 04:00 MCHC 30.4 g/dL (31.6-35.5) L 07/17/19 04:00 RDW 14.8 % (11.5-14.5) H 07/17/19 04:00 Neutrophils # 9.8 K/mcL (1.6-8.9) H 07/17/19 04:00 Lymphocytes # 0.5 K/mcL (0.6-4.6) L 07/17/19 04:00 PT 12.8 Seconds (9.4-12.1) H 07/15/19 22:17 ABG pCO2 70 mmHg (35-45) H* 07/17/19 04:29 ABG pO2 65 mmHg (85-104) L 07/17/19 04:29 ABG HCO3 36 mEq/L (21-27) H 07/17/19 04:29 ABG Total CO2 38 mEq/L (20-26) H 07/17/19 04:29 ABG O2 Saturation 89 % (95-98) L 07/17/19 04:29 ABG Base Excess 7 mEq/L (-2 to 3) H 07/17/19 04:29 Carbon Dioxide 33 mEq/L (23-29) H 07/15/19 22:05 Glucose 150 mg/dL (70-105) H 07/15/19 22:05 POC Glucose 135 mg/dL (70-99) H 07/17/19 00:01 Calcium 8.3 mg/dL (8.6-10.3) L 07/15/19 22:05 B-Natriuretic Peptide 126 pg/mL (Less than 100) H 07/15/19 22:18 Free T3 2.23 pg/mL (2.50-3.90) L 07/16/19 09:57 Urine Protein 30 mg/dL (Neg-Trace) H 07/15/19 23:21 Urine Glucose (UA) 100 mg/dL (Normal) H 07/15/19 23:21 Urine Ketones 15 mg/dL (Negative) H 07/15/19 23:21 Urine Blood Large (Negative) H 07/15/19 23:21 Urine Microscopic RBC 30-50 per hpf (0-3) H 07/15/19 23:21 Ur Squamous Epith Cells Many per lpf (None-Few) H 07/15/19 23:21 Hyaline Casts Moderate per lpf (None-Few) H 07/15/19 23:21 Entero/Rhino (PCR) DETECTED (Not Detect) A 07/16/19 00:16 - Microbiology Findings Microbiology Findings: Microbiology, Last 48 Hours 07/15/19 23:21 Sputum Culture - Preliminary Sputum 07/15/19 23:46 Blood Culture - Preliminary Peripheral Venipuncture Culture is incubating and being continuously monitored for growth. Final report to follow. 07/15/19 23:46 Blood Culture - Preliminary Peripheral Venipuncture Culture is incubating and being continuously monitored for growth. Final report to follow. 07/15/19 23:16 Legionella Antigen - Final Urine,Catheterized (Straight) Streptococcus pneumoniae Antigen (M - Final - Clinical Findings Intake & Output: Intake & Output 07/16/19 07/16/19 07/17/19 15:59 23:59 07:59 Intake Total 450 / 1810.0 1260.0 / 1810.0 1080 / 1080 Output Total 100 / 575 200 / 575 100 / 100 Balance 350 / 1235.0 1060.0 / 1235.0 980 / 980 Consult Discharge Plan - Plan Referrals: NONE,PCP [Primary Care Provider] - <Daniel Candelaria S - Last Filed: 07/17/19 21:22> Date of Encounter: 07/17/19 Objective PUL Vital signs: Last Vital Signs Temp 97.5 F L 07/17/19 19:49 Pulse 108 07/17/19 20:00 Resp 28 07/17/19 20:00 BP 173/90 07/17/19 20:00 Pulse Ox 94 07/17/19 20:00 Results - Laboratory Findings CBC and BMP: 07/17/19 04:00 07/17/19 04:00 ABG ABG pH 7.37 pH Units (7.32-7.45) 07/17/19 06:55 ABG pCO2 63 mmHg (35-45) H 07/17/19 06:55 ABG pO2 82 mmHg (85-104) L 07/17/19 06:55 ABG O2 Saturation 95 % (95-98) 07/17/19 06:55 PT/INR, D-dimer PT 12.8 Seconds (9.4-12.1) H 07/15/19 22:17 Abnormal lab findings: Abnormal lab results RBC 3.45 M/mcL (3.82-4.97) L 07/17/19 04:00 Hgb 10.1 g/dL (11.5-15.4) L D 07/17/19 04:00 Hct 33.2 % (35.3-44.9) L 07/17/19 04:00 MCHC 30.4 g/dL (31.6-35.5) L 07/17/19 04:00 RDW 14.8 % (11.5-14.5) H 07/17/19 04:00 Neutrophils # 9.8 K/mcL (1.6-8.9) H 07/17/19 04:00 Lymphocytes # 0.5 K/mcL (0.6-4.6) L 07/17/19 04:00 PT 12.8 Seconds (9.4-12.1) H 07/15/19 22:17 ABG pCO2 63 mmHg (35-45) H 07/17/19 06:55 ABG pO2 82 mmHg (85-104) L 07/17/19 06:55 ABG HCO3 36 mEq/L (21-27) H 07/17/19 06:55 ABG Total CO2 38 mEq/L (20-26) H 07/17/19 06:55 ABG O2 Saturation 89 % (95-98) L 07/17/19 04:29 ABG Base Excess 8 mEq/L (-2 to 3) H 07/17/19 06:55 Carbon Dioxide 33 mEq/L (23-29) H 07/17/19 04:00 BUN/Creatinine Ratio 29 (6-26) H 07/17/19 04:00 Glucose 136 mg/dL (70-105) H 07/17/19 04:00 POC Glucose 135 mg/dL (70-99) H 07/17/19 00:01 Calcium 7.9 mg/dL (8.6-10.3) L 07/17/19 04:00 B-Natriuretic Peptide 126 pg/mL (Less than 100) H 07/15/19 22:18 Free T3 2.23 pg/mL (2.50-3.90) L 07/16/19 09:57 Urine Protein 30 mg/dL (Neg-Trace) H 07/15/19 23:21 Urine Glucose (UA) 100 mg/dL (Normal) H 07/15/19 23:21 Urine Ketones 15 mg/dL (Negative) H 07/15/19 23:21 Urine Blood Large (Negative) H 07/15/19 23:21 Urine Microscopic RBC 30-50 per hpf (0-3) H 07/15/19 23:21 Ur Squamous Epith Cells Many per lpf (None-Few) H 07/15/19 23:21 Hyaline Casts Moderate per lpf (None-Few) H 07/15/19 23:21 Entero/Rhino (PCR) DETECTED (Not Detect) A 07/16/19 00:16 - Microbiology Findings Microbiology Findings: Microbiology, Last 48 Hours 07/15/19 23:21 Sputum Culture - Preliminary Sputum 07/15/19 23:46 Blood Culture - Preliminary Peripheral Venipuncture Culture is incubating and being continuously monitored for growth. Final report to follow. 07/15/19 23:46 Blood Culture - Preliminary Peripheral Venipuncture Culture is incubating and being continuously monitored for growth. Final report to follow. 07/15/19 23:16 Legionella Antigen - Final Urine,Catheterized (Straight) Streptococcus pneumoniae Antigen (M - Final - Clinical Findings Intake & Output: Intake & Output 07/17/19 07/17/19 07/17/19 07:59 15:59 23:59 Intake Total 1180 / 2273 1093 / 2273 0 / 2273 Output Total 100 / 775 425 / 775 250 / 775 Balance 1080 / 1498 668 / 1498 -250 / 1498 - Attending Attestation I saw and evaluated this patient and my medical decision-making was reviewed with the Resident Physician. I agree with the documented findings, disposition and treatment plan as described except to the extent set forth below. We independently had [id number] contact with the patient I spent 40 minutes of Critical Care time with this patient. It involved decision making of high complexity to assess, manipulate, and support vital organ system failure and/or to prevent further life threatening deterioration of the patient's condition. The time involved in the performance of separately reportable procedures was not counted toward critical care time. Patient seen and examined at bedside Labs, radiology, chart personally reviewed. Management was reviewed during multidisciplinary critical care rounds. GLAZE MIXER: Patient is awake following commands if she passed the spontaneous breathing trial will extubate to BiPAP. Pulm: Patient has acceptable oxygenation and ventilation acute on chronic hypoxic hypercarbic respiratory failure due to COPD exacerbation due to enterovirus induced COPD exacerbation. Cards: Patient is hemodynamically stable to watch for blood pressure control blood pressure is too high with systolic 160 as afterload increase can cause diastolic dysfunction and can worsen interstitial hydrostatic pulmonary edema FEN-GI: Advance diet as tolerated Renal: Labs and output were reviewed ID: To continue azithromycin Heme/Onc: Labs reviewed Endo: Glucose Monitored Integ/MSK: Skin Care per routine ICU Nursing Protocol to prevent ulcers. Lines: All lines examined without evidence of infection : Dispo: high chance of respiratory decline to keep in intensive care CODE: Full Code
[2019-07-17 06:59] LABS: ABG Base Excess 8 mEq/L (-2 to 3); ABG HCO3 36 mEq/L (21-27); ABG Oxygen Saturation 95 % (95-98); ABG PCO2 63 mmHg (35-45); ABG PH 7.37 pH Units (7.32-7.45); ABG PO2 82 mmHg (85-104); ABG TCO2 38 mEq/L (20-26); Blood Gas PEEP 5 cm H2O; Blood Gas VT 450 cc
[2019-07-17] MEDS: Azithromycin 500 MG in 0.9 % Sodium Chloride 250 ML IVPB SCH (08:29)
[2019-07-17] MEDS: Chlorhexidine Rinse 15 ML MOUTHWASH MM SCH ×2 (08:30→19:15)
[2019-07-17] MEDS: Pantoprazole 40 MG VIAL IVP SCH (08:30)
[2019-07-17] MEDS ORDERED: *HR* LORazepam 2 MG/ML VIAL ONE (10:18)
[2019-07-17] MEDS ORDERED: *HR* LORazepam 2 MG/ML VIAL IVP STA (10:27)
[2019-07-17] MEDS ORDERED: *HR* LORazepam 2 MG/ML VIAL IVP PRN ×3 (11:24→22:39)
--- NOTE | 2019-07-17 14:25 | Internal Med Progress Note ---
Hospitalist Progress Note - Encounter Date of Encounter: 07/17/19 Time of Encounter: 07:20 - Subjective Interval History: I saw and examined patient independently on rounds this morning. I discussed the case with Dr. Candelaria, respiratory therapy, and multidisciplinary team. e placed her on CPAP trial this morning, which she tolerated well. Once Dr.Je arevalo arrived, he assessed her, and we extubated her. We will watch her closely in ICU for now and use BiPAP intermittently while she continues to receive treatments. If she remains stable, we will allow her to eat and take oral home meds as appropriate. - Exam Vitals: Temp Pulse Resp BP Pulse Ox 98.2 F 69 18 155/74 96 07/17/19 12:31 07/17/19 13:00 07/17/19 13:00 07/17/19 13:00 07/17/19 13:00 Exam: General: NAD; breathing well on vent and the BiPap HEENT: dry mucosa; neck supple Chest: improved air exchange; decreased wheezing; no crackles; RR; grade 1 systolic murmur Abdomen: soft, NT, ND, no HSMG; + BS Ext: trace non-pitting edema; no calf pain, full ROM Neuro: A&Ox3; no focal deficits; responds appropriately. Skin: warm and dry - Assessment and Plan (1) COPD exacerbation Current Visit: Yes Status: Acute Assessment and Plan: 1. Continue aerosols, BiPap wean, and oxygen. 2. Wean steroids slowly. 3. Likely stop antibiotics tomorrow as this is likely viral in etiology. (2) Acute respiratory failure with hypercapnia Current Visit: Yes Status: Acute Assessment and Plan: 1. S/P extubation this morning. 2. Monitor in ICU today; BiPap PRN and QHS. 3. Pulmonary following. (3) Graves disease Current Visit: Yes Status: Acute Assessment and Plan: 1. Resume Syntrhoid today. 2. TSH WNL. (4) Hypertension Current Visit: Yes Status: Chronic Assessment and Plan: 1. Monitor BP and resume home meds as appropriate. 2. Adjust BP meds as necessary clinically. (5) DVT prophylaxis Current Visit: Yes Status: Acute Assessment and Plan: 1. Heparin SQ. - Time Spent with Patient Total time spent is greater than 50% in coordination of care (as documented) at patient's floor/unit and/or counseling patient: Plan of Care Discussed with: other (MDR team) Internal Medicine: Result - Labs CBC & Chem 7: 07/17/19 04:00 07/17/19 04:00 Labs: Short CBC 07/17/19 Range/Units 04:00 WBC 10.6 (4.3-11.1) K/mcL Hgb 10.1 L D (11.5-15.4) g/dL Hct 33.2 L (35.3-44.9) % Plt Count 225 (140-400) K/mcL Neutrophils # 9.8 H (1.6-8.9) K/mcL BMP 07/17/19 04:00 Sodium 139 Potassium 4.2 Chloride 102 Carbon Dioxide 33 H BUN 19 Creatinine 0.65 Glucose 136 H Calcium 7.9 L - ABG Interpretation ABG results: ABG ABG pH 7.37 pH Units (7.32-7.45) 07/17/19 06:55 ABG pCO2 63 mmHg (35-45) H 07/17/19 06:55 ABG pO2 82 mmHg (85-104) L 07/17/19 06:55 ABG O2 Saturation 95 % (95-98) 07/17/19 06:55 PT/INR, D-dimer PT 12.8 Seconds (9.4-12.1) H 07/15/19 22:17 - Impressions Impressions Chest X-Ray 07/17/19 07:56 IMPRESSION: No acute cardiopulmonary abnormality. D/ / Nael Lopes MD / Nael Lopes MD Interpreting Provider: Nael Lopes MD Consult Discharge Plan - Plan Referrals: NONE,PCP [Primary Care Provider] - (4) Hypertension Qualifiers: Hypertension type: essential hypertension Qualified Code(s): I10 - Essential (primary) hypertension
[2019-07-17] MEDS: amLODIPine 5 MG TABLET PO SCH (14:54)
[2019-07-17] MEDS: ALPRAZolam 0.25 MG TABLET PO PRN (20:26)
[2019-07-17] MEDS: Metoprolol XL (24 HR) Succ 50 MG TAB.ER.24H PO SCH (20:27)
[2019-07-17] MEDS ORDERED: *HR* Acetylcysteine 20% 600 MG/3 ML ORAL SYRINGE PO SCH (21:00)
[2019-07-17] MEDS: Budesonide/Formoterol 160/4.5 1 PUFF INH IH SCH (22:09)
[2019-07-18] MEDS: Ipratropium/Albuterol Neb 3 ML IH SCH ×5 (03:33→23:30)
[2019-07-18 03:46] LABS: Basophils % 0.2 %; Hematocrit 35.8 % (35.3-44.9); Hemoglobin 10.8 g/dL (11.5-15.4); Immature Granulocytes % 0.6 % (0-4); Lymphocytes # 1.5 K/mcL (0.6-4.6); Mean Corpuscular HGB Conc 30.2 g/dL (31.6-35.5); Mean Corpuscular Hemoglobin 28.7 pg (28.0-33.3); Mean Corpuscular Volume 95.2 fL (83.0-100.0); Mean Platelet Volume 10.3 fL (9.4-12.4); Monocytes # 0.7 K/mcL (0.0-1.3); Monocytes % 6.6 %; Neutrophils # 8.5 K/mcL (1.6-8.9); Platelet Count 234 K/mcL (140-400); Red Blood Count 3.76 M/mcL (3.82-4.97); Red Cell Distribution Width 15.1 % (11.5-14.5); Segmented Neutrophils % 78.6 %; White Blood Count 10.8 K/mcL (4.3-11.1)
[2019-07-18 04:04] LABS: BUN/Creatinine Ratio 32 (6-26); Blood Urea Nitrogen 18 mg/dL (8-23); Calcium 8.4 mg/dL (8.6-10.3); Carbon Dioxide 37 mEq/L (23-29); Chloride 103 mEq/L (98-107); Glucose 95 mg/dL (70-105); Osmolality,Calculated 298 (280-300); Sodium 143 mEq/L (136-145); eGFR For African Americans > 60 (> 60); eGFR For Non-African Americans > 60 (> 60)
[2019-07-18] MEDS: *HR* Heparin 5,000 UNIT/ML VIAL SQ SCH ×3 (06:05→21:23)
[2019-07-18] MEDS: Artificial Tears SOLN 15 ML BOTTLE BOTH EYES SCH ×5 (06:05→17:37)
--- NOTE | 2019-07-18 06:59 | Pulmonology Progress Note ---
<Jose Miguel Tyson Chadd - Last Filed: 07/18/19 12:39> Date of Encounter: 07/18/19 Time of Encounter: 06:58 Assessment and Plan (1) Acute respiratory failure with hypercapnia Current Visit: Yes Status: Acute ABG with respiratory acidosis likely secondary to COPD exacerbation in the setting of rhinovirus infection. 07/17/19 pt was extubated and started on BiPAP BiPAP for 4 hours after extubation then pt was switched to oxymask with continued good oxygenation -Back on BiPAP overnight with plan to continue BiPAP for now and wean as tolerated -Duonebs, symbicort, Mucomyst, and Solumedrol 40 mg Q8H -Azithromycin Daily (2) COPD exacerbation Current Visit: Yes Status: Acute Patient with severe COPD on 3 L nasal cannula at home See plan as stated above Azithromycin for antibiotic anti-inflammatory coverage (3) Hypertension Current Visit: Yes Status: Chronic Latest BP of 146/80 On Toprol Xl 100 mg BID, Norvasc 5 mg, lasix 40 mg Q48H -BP currently stable, continue to monitor -Home medications restarted Qualifiers: Hypertension type: essential hypertension Qualified Code(s): I10 - Essential (primary) hypertension (4) Graves disease Current Visit: Yes Status: Acute TSH of 0.345 Free T3/T4 of 2.23 and 0.95 -Restart pt on home Levothyroxine dose of 75 mcg (5) DVT prophylaxis Current Visit: Yes Status: Acute Heparin SubQ Subjective Interval history: Patient currently on BiPAP making subjective difficult to obtain. Patient does state she feels that she is having some congestion in her throat and nose. Patient states she is on oxygen all the time at home. Objective PUL Vital signs: Last Vital Signs Temp 98.2 F 07/18/19 04:00 Pulse 67 07/18/19 06:00 Resp 16 07/18/19 06:00 BP 110/62 07/18/19 06:00 Pulse Ox 95 07/18/19 06:00 General appearance: other (IPAP in place but patient appears comfortable.) Eyes: nonicteric, other (Exophthalmos) Neck: no lymphadenopathy Effort: mildly labored Auscultation: bilateral: wheezes (Expiratory) Cardiovascular: regular rate and rhythm Gastrointestinal: normoactive bowel sounds, soft, non-distended Integumentary: normal Extremities: no edema, pulses normal Musculoskeletal: no deformities normal mental status, non-focal exam anxious Results - Laboratory Findings CBC and BMP: 07/18/19 03:25 07/18/19 11:50 ABG ABG pH 7.37 pH Units (7.32-7.45) 07/17/19 06:55 ABG pCO2 63 mmHg (35-45) H 07/17/19 06:55 ABG pO2 82 mmHg (85-104) L 07/17/19 06:55 ABG O2 Saturation 95 % (95-98) 07/17/19 06:55 PT/INR, D-dimer PT 12.8 Seconds (9.4-12.1) H 07/15/19 22:17 Abnormal lab findings: Abnormal lab results RBC 3.76 M/mcL (3.82-4.97) L 07/18/19 03:25 Hgb 10.8 g/dL (11.5-15.4) L 07/18/19 03:25 Hct 33.2 % (35.3-44.9) L 07/17/19 04:00 MCHC 30.2 g/dL (31.6-35.5) L 07/18/19 03:25 RDW 15.1 % (11.5-14.5) H 07/18/19 03:25 Neutrophils # 9.8 K/mcL (1.6-8.9) H 07/17/19 04:00 Lymphocytes # 0.5 K/mcL (0.6-4.6) L 07/17/19 04:00 PT 12.8 Seconds (9.4-12.1) H 07/15/19 22:17 ABG pCO2 63 mmHg (35-45) H 07/17/19 06:55 ABG pO2 82 mmHg (85-104) L 07/17/19 06:55 ABG HCO3 36 mEq/L (21-27) H 07/17/19 06:55 ABG Total CO2 38 mEq/L (20-26) H 07/17/19 06:55 ABG O2 Saturation 89 % (95-98) L 07/17/19 04:29 ABG Base Excess 8 mEq/L (-2 to 3) H 07/17/19 06:55 Carbon Dioxide 37 mEq/L (23-29) H 07/18/19 03:25 Creatinine 0.56 mg/dL (0.60-1.20) L 07/18/19 03:25 BUN/Creatinine Ratio 32 (6-26) H 07/18/19 03:25 Glucose 136 mg/dL (70-105) H 07/17/19 04:00 POC Glucose 107 mg/dL (70-99) H 07/17/19 19:17 Calcium 8.4 mg/dL (8.6-10.3) L 07/18/19 03:25 B-Natriuretic Peptide 126 pg/mL (Less than 100) H 07/15/19 22:18 Free T3 2.23 pg/mL (2.50-3.90) L 07/16/19 09:57 Urine Protein 30 mg/dL (Neg-Trace) H 07/15/19 23:21 Urine Glucose (UA) 100 mg/dL (Normal) H 07/15/19 23:21 Urine Ketones 15 mg/dL (Negative) H 07/15/19 23:21 Urine Blood Large (Negative) H 07/15/19 23:21 Urine Microscopic RBC 30-50 per hpf (0-3) H 07/15/19 23:21 Ur Squamous Epith Cells Many per lpf (None-Few) H 07/15/19 23:21 Hyaline Casts Moderate per lpf (None-Few) H 07/15/19 23:21 Entero/Rhino (PCR) DETECTED (Not Detect) A 07/16/19 00:16 - Microbiology Findings Microbiology Findings: Microbiology, Last 48 Hours 07/15/19 23:21 Sputum Culture - Preliminary Sputum 07/15/19 23:46 Blood Culture - Preliminary Peripheral Venipuncture Culture is incubating and being continuously monitored for growth. Final report to follow. 07/15/19 23:46 Blood Culture - Preliminary Peripheral Venipuncture Culture is incubating and being continuously monitored for growth. Final report to follow. - Clinical Findings Intake & Output: Intake & Output 07/17/19 07/17/19 07/18/19 15:59 23:59 07:59 Intake Total 1093 / 2273 0 / 2273 Output Total 425 / 1175 650 / 1175 200 / 200 Balance 668 / 1098 -650 / 1098 -200 / -200 Weight 80 kg Consult Discharge Plan - Plan Referrals: NONE,PCP [Primary Care Provider] - <Daniel Candelaria S - Last Filed: 07/18/19 15:41> Date of Encounter: 07/18/19 Objective PUL Vital signs: Last Vital Signs Temp 98.9 F 07/18/19 11:46 Pulse 78 07/18/19 15:00 Resp 20 07/18/19 15:00 BP 132/74 07/18/19 15:00 Pulse Ox 94 07/18/19 15:00 Results - Laboratory Findings CBC and BMP: 07/18/19 03:25 07/18/19 11:50 ABG ABG pH 7.37 pH Units (7.32-7.45) 07/17/19 06:55 ABG pCO2 63 mmHg (35-45) H 07/17/19 06:55 ABG pO2 82 mmHg (85-104) L 07/17/19 06:55 ABG O2 Saturation 95 % (95-98) 07/17/19 06:55 PT/INR, D-dimer PT 12.8 Seconds (9.4-12.1) H 07/15/19 22:17 Abnormal lab findings: Abnormal lab results RBC 3.76 M/mcL (3.82-4.97) L 07/18/19 03:25 Hgb 10.8 g/dL (11.5-15.4) L 07/18/19 03:25 Hct 33.2 % (35.3-44.9) L 07/17/19 04:00 MCHC 30.2 g/dL (31.6-35.5) L 07/18/19 03:25 RDW 15.1 % (11.5-14.5) H 07/18/19 03:25 Neutrophils # 9.8 K/mcL (1.6-8.9) H 07/17/19 04:00 Lymphocytes # 0.5 K/mcL (0.6-4.6) L 07/17/19 04:00 PT 12.8 Seconds (9.4-12.1) H 07/15/19 22:17 ABG pCO2 63 mmHg (35-45) H 07/17/19 06:55 ABG pO2 82 mmHg (85-104) L 07/17/19 06:55 ABG HCO3 36 mEq/L (21-27) H 07/17/19 06:55 ABG Total CO2 38 mEq/L (20-26) H 07/17/19 06:55 ABG O2 Saturation 89 % (95-98) L 07/17/19 04:29 ABG Base Excess 8 mEq/L (-2 to 3) H 07/17/19 06:55 Carbon Dioxide 37 mEq/L (23-29) H 07/18/19 11:50 Creatinine 0.56 mg/dL (0.60-1.20) L 07/18/19 03:25 BUN/Creatinine Ratio 30 (6-26) H 07/18/19 11:50 Glucose 136 mg/dL (70-105) H 07/17/19 04:00 POC Glucose 107 mg/dL (70-99) H 07/17/19 19:17 Calcium 8.2 mg/dL (8.6-10.3) L 07/18/19 11:50 B-Natriuretic Peptide 146 pg/mL (Less than 100) H 07/18/19 11:50 Free T3 2.23 pg/mL (2.50-3.90) L 07/16/19 09:57 Urine Protein 30 mg/dL (Neg-Trace) H 07/15/19 23:21 Urine Glucose (UA) 100 mg/dL (Normal) H 07/15/19 23:21 Urine Ketones 15 mg/dL (Negative) H 07/15/19 23:21 Urine Blood Large (Negative) H 07/15/19 23:21 Urine Microscopic RBC 30-50 per hpf (0-3) H 07/15/19 23:21 Ur Squamous Epith Cells Many per lpf (None-Few) H 07/15/19 23:21 Hyaline Casts Moderate per lpf (None-Few) H 07/15/19 23:21 Entero/Rhino (PCR) DETECTED (Not Detect) A 07/16/19 00:16 - Microbiology Findings Microbiology Findings: Microbiology, Last 48 Hours 07/15/19 23:21 Sputum Culture - Final Sputum - Clinical Findings Intake & Output: Intake & Output 07/17/19 07/18/19 07/18/19 23:59 07:59 15:59 Intake Total 0 / 3 120 / 370 250 / 370 Output Total 650 / 1175 200 / 525 325 / 525 Balance -650 / 1098 -80 / -155 -75 / -155 Weight 80 kg - Attending Attestation I saw and evaluated this patient and my medical decision-making was reviewed with the Resident Physician. I agree with the documented findings, disposition and treatment plan as described except to the extent set forth below. We independently had [id number] contact with the patient I spent 32 minutes of Critical Care time with this patient. It involved decision making of high complexity to assess, manipulate, and support vital organ system failure and/or to prevent further life threatening deterioration of the patient' s condition. The time involved in the performance of separately reportable procedures was not counted toward critical care time. Patient seen and examined at bedside Labs, radiology, chart personally reviewed. Management was reviewed during multidisciplinary critical care rounds. MOVIE EXTRA: Patient is awake following commands says she needs the BiPAP to breathe better. Pulm: Patient has acceptable oxygenation and ventilation acute on chronic hypoxic hypercarbic respiratory failure due to COPD exacerbation due to enterovirus induced COPD exacerbation. 07/18 patient presented with viral exacerbation of COPD finishing had antibiotics to continue steroids to discontinue N-acetylcysteine as this can worsen the bronchospasm patient has significant bronchospasm to schedule bronchodilators wi ll help in the VQ mismatch significant give a break in the evening from BiPAP and she will need BiPAP throughout the night. Cards: Patient is hemodynamically stable to watch for blood pressure control blood pressure is too high with systolic 160 as afterload increase can cause diastolic dysfunction and can worsen interstitial hydrostatic pulmonary edema 07/18 will get echocardiogram. Currently patient is hemodynamically stable FEN-GI: To give clear liquid diet when on breaks Renal: Labs and output were reviewed ID: To continue azithromycin to finish the course. Heme/Onc: Labs reviewed Endo: Glucose Monitored Integ/MSK: Skin Care per routine ICU Nursing Protocol to prevent ulcers. Lines: All lines examined without evidence of infection : Dispo: high chance of respiratory decline to keep in intensive care CODE: Full Code
[2019-07-18] MEDS: Budesonide/Formoterol 160/4.5 1 PUFF INH IH SCH ×2 (08:12→19:39)
[2019-07-18] MEDS: Pantoprazole 40 MG VIAL IVP SCH (08:43)
[2019-07-18] MEDS: Azithromycin 500 MG in 0.9 % Sodium Chloride 250 ML IVPB SCH (08:43)
[2019-07-18] MEDS: Chlorhexidine Rinse 15 ML MOUTHWASH MM SCH ×2 (08:44→17:37)
[2019-07-18] MEDS: ALPRAZolam 0.25 MG TABLET PO PRN ×2 (08:44→20:41)
[2019-07-18] MEDS: Aspirin 81 MG TAB.CHEW PO SCH (08:44)
[2019-07-18] MEDS: Metoprolol XL (24 HR) Succ 50 MG TAB.ER.24H PO SCH ×2 (08:44→20:41)
[2019-07-18] MEDS: amLODIPine 5 MG TABLET PO SCH (08:44)
--- NOTE | 2019-07-18 08:56 | Internal Med Progress Note ---
Hospitalist Progress Note - Encounter Date of Encounter: 07/18/19 Time of Encounter: 07:30 - Subjective Interval History: Patient on BiPap overnight and now on oxymask. She was sleeping this morning; easily arousable; no complaints at that time, but she became anxious shortly thereafter and was placed on BiPap. Patient has high anxiety and has oxygen d ependent COPD (3L NC baseline at home). She is audbily wheezing today but much improved compared to yesterday. I reviewed nurse note about CODE status from last night. I discussed CODE status with patient this morning and the possible need for re-intubation at some point. She does does not want to be re-intubated, but she wants to remain full code. I explained to her the essence of full code, and she went on to say that she's unsure and that she wants "to think about it". She will remain full code for now until she can decide. She may need palliative consultation in the near future to assist with goals of care counseling. - Exam Vitals: Temp Pulse Resp BP Pulse Ox 98.2 F 72 18 117/59 96 07/18/19 04:00 07/18/19 07:00 07/18/19 07:00 07/18/19 07:00 07/18/19 07:00 Exam: General: sleeping, NAD; arousable, audibly wheezing but breathing easily HEENT: no icterus; exopthalmos (chronic); wide neck, small jaw (micrognathia); no stridor Chest: diffuse wheezing with prolonged expiratory phases; + rhonchi; no crackles; RRR; distant heart sounds Abdomen: soft, NT, ND, no HSMG Ext: trace edema (non-pitting); equal pulses Neuro: A&Ox3; no focal deficits Skin: warm and dry Psych: relaxed this morning, then anxious with wheezing - Assessment and Plan (1) COPD exacerbation Current Visit: Yes Status: Acute Assessment and Plan: 1. Wean steroids, scheduled and PRN aerosols with Mucomyst. 2. Wean oxygen and use BiPap PRN. 3. Likely viral etiology (rhinovirus); consider stopping Zithromax -- will discuss with Dr. Candelaria. 4. Treat underlying anxiety cautiously with home anxiolytics. 5. ECHO ordered to assess LV/RV function. (2) Acute respiratory failure with hypercapnia Current Visit: Yes Status: Acute Assessment and Plan: 1. Extubated yesterday. 2. Continues on BIPap QHS and PRN daytime. 3. Will discuss with Dr. Candelaria on rounds. (3) Graves disease Current Visit: Yes Status: Acute Assessment and Plan: 1. Resume Synthroid today. 2. TSH, free T4 WNL. (4) Hypertension Current Visit: Yes Status: Chronic Assessment and Plan: 1. Monitor and treat with home meds as appropriate. (5) DVT prophylaxis Current Visit: Yes Status: Acute Assessment and Plan: 1. Heparin SQ. - Time Spent with Patient Total time spent is greater than 50% in coordination of care (as documented) at patient's floor/unit and/or counseling patient: Greater than 35 minutes Plan of Care Discussed with: other (MDR team) Internal Medicine: Result - Labs CBC & Chem 7: 07/18/19 03:25 07/18/19 03:25 Labs: Short CBC 07/18/19 Range/Units 03:25 WBC 10.8 (4.3-11.1) K/mcL Hgb 10.8 L (11.5-15.4) g/dL Hct 35.8 (35.3-44.9) % Plt Count 234 (140-400) K/mcL Neutrophils # 8.5 (1.6-8.9) K/mcL BMP 07/18/19 03:25 Sodium 143 Potassium 4.0 Chloride 103 Carbon Dioxide 37 H BUN 18 Creatinine 0.56 L Glucose 95 Calcium 8.4 L - ABG Interpretation ABG results: ABG ABG pH 7.37 pH Units (7.32-7.45) 07/17/19 06:55 ABG pCO2 63 mmHg (35-45) H 07/17/19 06:55 ABG pO2 82 mmHg (85-104) L 07/17/19 06:55 ABG O2 Saturation 95 % (95-98) 07/17/19 06:55 PT/INR, D-dimer PT 12.8 Seconds (9.4-12.1) H 07/15/19 22:17 Consult Discharge Plan - Plan Referrals: NONE,PCP [Primary Care Provider] - (4) Hypertension Qualifiers: Hypertension type: essential hypertension Qualified Code(s): I10 - Essential (primary) hypertension
[2019-07-18] MEDS ORDERED: MethylPREDNISolone 40 MG/ML VIAL IVP SCH (09:00)
[2019-07-18] MEDS ORDERED: Albuterol 2.5 MG/3 ML NEBULIZER IH PRN (09:19)
[2019-07-18] MEDS: 0.9 % Sodium Chloride 1,000 ML IVC SCH ×2 (09:28→17:38)
[2019-07-18] MEDS ORDERED: Ipratropium/Albuterol Neb 3 ML IH SCH (09:30)
[2019-07-18] MEDS ORDERED: Acetylcysteine 10% 2 ML INHSOL IH SCH (10:00)
[2019-07-18] MEDS: Acetylcysteine 10% 2 ML INHSOL IH SCH ×2 (11:27→15:45)
[2019-07-18] MEDS ORDERED: Furosemide 40 MG/4 ML VIAL IVP ONE (11:29)
[2019-07-18 12:22] LABS: BUN/Creatinine Ratio 30 (6-26); Blood Urea Nitrogen 18 mg/dL (8-23); Calcium 8.2 mg/dL (8.6-10.3); Carbon Dioxide 37 mEq/L (23-29); Chloride 102 mEq/L (98-107); Glucose 104 mg/dL (70-105); Magnesium 2.4 mg/dL (1.6-2.6); Osmolality,Calculated 296 (280-300); Potassium 4.2 mEq/L (3.5-5.1); Sodium 142 mEq/L (136-145); eGFR For African Americans > 60 (> 60); eGFR For Non-African Americans > 60 (> 60)
[2019-07-18] MEDS ORDERED: Perflutren Lipid Microsphere 1.3 ML in 0.9 % Sodium Chloride 8.7 ML IVP ONE (14:35)
[2019-07-18] MEDS: MethylPREDNISolone 40 MG/ML VIAL IVP SCH (17:37)
[2019-07-19] MEDS: Artificial Tears SOLN 15 ML BOTTLE BOTH EYES SCH ×3 (00:28→08:29)
[2019-07-19] MEDS: Ipratropium/Albuterol Neb 3 ML IH SCH ×5 (03:55→20:12)
[2019-07-19 05:51] LABS: Basophils % 0.2 %; Hematocrit 36.7 % (35.3-44.9); Hemoglobin 11.3 g/dL (11.5-15.4); Immature Granulocytes % 0.9 % (0-4); Lymphocytes % 25.1 %; Mean Corpuscular HGB Conc 30.8 g/dL (31.6-35.5); Mean Corpuscular Hemoglobin 29.4 pg (28.0-33.3); Mean Corpuscular Volume 95.6 fL (83.0-100.0); Mean Platelet Volume 10.2 fL (9.4-12.4); Monocytes # 0.6 K/mcL (0.0-1.3); Monocytes % 7.5 %; Neutrophils # 5.4 K/mcL (1.6-8.9); Platelet Count 222 K/mcL (140-400); Red Blood Count 3.84 M/mcL (3.82-4.97); Red Cell Distribution Width 14.7 % (11.5-14.5); Segmented Neutrophils % 66.3 %; White Blood Count 8.1 K/mcL (4.3-11.1)
[2019-07-19] MEDS: MethylPREDNISolone 40 MG/ML VIAL IVP SCH ×2 (06:10→17:06)
[2019-07-19] MEDS: *HR* Heparin 5,000 UNIT/ML VIAL SQ SCH ×3 (06:10→19:53)
[2019-07-19] MEDS: 0.9 % Sodium Chloride 1,000 ML IVC SCH (06:11)
[2019-07-19 06:12] LABS: BUN/Creatinine Ratio 31 (6-26); Blood Urea Nitrogen 21 mg/dL (8-23); Calcium 8.7 mg/dL (8.6-10.3); Carbon Dioxide 39 mEq/L (23-29); Chloride 98 mEq/L (98-107); Glucose 85 mg/dL (70-105); Osmolality,Calculated 298 (280-300); Potassium 3.5 mEq/L (3.5-5.1); Sodium 143 mEq/L (136-145); eGFR For African Americans > 60 (> 60); eGFR For Non-African Americans > 60 (> 60)
--- NOTE | 2019-07-19 06:45 | Pulmonology Progress Note ---
<Jose Miguel Tyson Chadd - Last Filed: 07/19/19 09:40> Date of Encounter: 07/19/19 Time of Encounter: 06:45 Assessment and Plan (1) Acute respiratory failure with hypercapnia Current Visit: Yes Status: Acute ABG with respiratory acidosis likely secondary to COPD exacerbation in the setting of rhinovirus infection. 07/17/19 pt was extubated and started on BiPAP Currently on 4 L via nasal cannula with saturations above 90%. -Duonebs, symbicort, Mucomyst, and Solumedrol 40 mg Q8H -Azithromycin Daily (2) COPD exacerbation Current Visit: Yes Status: Acute Patient with severe COPD on 3 L nasal cannula at home See plan as stated above Azithromycin for antibiotic anti-inflammatory coverage (3) Hypertension Current Visit: Yes Status: Chronic Latest BP of 125/65 On Toprol Xl 100 mg BID, Norvasc 5 mg, lasix 40 mg Q48H -BP currently stable, continue to monitor -Home medications restarted Qualifiers: Hypertension type: essential hypertension Qualified Code(s): I10 - Essential (primary) hypertension (4) Graves disease Current Visit: Yes Status: Acute TSH of 0.345 Free T3/T4 of 2.23 and 0.95 -Restart pt on home Levothyroxine dose of 75 mcg (5) DVT prophylaxis Current Visit: Yes Status: Acute Heparin SubQ Subjective Interval history: Patient currently on 4 L via nasal cannula and speaking in full sentences. Patient states that she is feeling much better today, but still has some sore throat and congestion. She states the congestion gets better with Mucinex and her other treatments. Discussed the fact the patient had a tube down her throat which could also have contributed to the throat soreness. No chest pain, cough, fever, chills, abdominal pain, nausea, vomiting, or diarrhea. Objective PUL Vital signs: Last Vital Signs Temp 98.7 F 07/19/19 04:00 Pulse 73 07/19/19 06:00 Resp 21 07/19/19 06:00 BP 133/68 07/19/19 06:00 Pulse Ox 92 07/19/19 06:00 General appearance: Resting comfortably on NC at 4 L Eyes: nonicteric, Exophthalmos Neck: supple. No JVD Effort: non-labored Auscultation: bilateral: wheezes improved from previous day Cardiovascular: regular rate and rhythm Gastrointestinal: normoactive bowel sounds, soft, non-distended Integumentary: normal Extremities: no edema, pulses normal Musculoskeletal: no deformities normal mental status, non-focal exam anxious Results - Laboratory Findings CBC and BMP: 07/19/19 05:20 07/19/19 05:20 ABG ABG pH 7.37 pH Units (7.32-7.45) 07/17/19 06:55 ABG pCO2 63 mmHg (35-45) H 07/17/19 06:55 ABG pO2 82 mmHg (85-104) L 07/17/19 06:55 ABG O2 Saturation 95 % (95-98) 07/17/19 06:55 PT/INR, D-dimer PT 12.8 Seconds (9.4-12.1) H 07/15/19 22:17 Abnormal lab findings: Abnormal lab results RBC 3.76 M/mcL (3.82-4.97) L 07/18/19 03:25 Hgb 11.3 g/dL (11.5-15.4) L 07/19/19 05:20 Hct 33.2 % (35.3-44.9) L 07/17/19 04:00 MCHC 30.8 g/dL (31.6-35.5) L 07/19/19 05:20 RDW 14.7 % (11.5-14.5) H 07/19/19 05:20 Neutrophils # 9.8 K/mcL (1.6-8.9) H 07/17/19 04:00 Lymphocytes # 0.5 K/mcL (0.6-4.6) L 07/17/19 04:00 PT 12.8 Seconds (9.4-12.1) H 07/15/19 22:17 ABG pCO2 63 mmHg (35-45) H 07/17/19 06:55 ABG pO2 82 mmHg (85-104) L 07/17/19 06:55 ABG HCO3 36 mEq/L (21-27) H 07/17/19 06:55 ABG Total CO2 38 mEq/L (20-26) H 07/17/19 06:55 ABG O2 Saturation 89 % (95-98) L 07/17/19 04:29 ABG Base Excess 8 mEq/L (-2 to 3) H 07/17/19 06:55 Carbon Dioxide 39 mEq/L (23-29) H 07/19/19 05:20 Creatinine 0.56 mg/dL (0.60-1.20) L 07/18/19 03:25 BUN/Creatinine Ratio 31 (6-26) H 07/19/19 05:20 Glucose 136 mg/dL (70-105) H 07/17/19 04:00 POC Glucose 107 mg/dL (70-99) H 07/17/19 19:17 Calcium 8.2 mg/dL (8.6-10.3) L 07/18/19 11:50 B-Natriuretic Peptide 146 pg/mL (Less than 100) H 07/18/19 11:50 Free T3 2.23 pg/mL (2.50-3.90) L 07/16/19 09:57 Urine Protein 30 mg/dL (Neg-Trace) H 07/15/19 23:21 Urine Glucose (UA) 100 mg/dL (Normal) H 07/15/19 23:21 Urine Ketones 15 mg/dL (Negative) H 07/15/19 23:21 Urine Blood Large (Negative) H 07/15/19 23:21 Urine Microscopic RBC 30-50 per hpf (0-3) H 07/15/19 23:21 Ur Squamous Epith Cells Many per lpf (None-Few) H 07/15/19 23:21 Hyaline Casts Moderate per lpf (None-Few) H 07/15/19 23:21 Entero/Rhino (PCR) DETECTED (Not Detect) A 07/16/19 00:16 - Microbiology Findings Microbiology Findings: Microbiology, Last 48 Hours 07/15/19 23:21 Sputum Culture - Final Sputum - Clinical Findings Intake & Output: Intake & Output 07/18/19 07/18/19 07/19/19 15:59 23:59 07:59 Intake Total 250 / 370 Output Total 325 / 2725 2200 / 2725 250 / 250 Balance -75 / -2355 -2200 / -2355 -250 / -250 Weight 79.6 kg Consult Discharge Plan - Plan Referrals: NONE,PCP [Primary Care Provider] - <Lupillo Young - Last Filed: 07/19/19 09:57> Date of Encounter: 07/19/19 Objective PUL Vital signs: Last Vital Signs Temp 98.6 F 07/19/19 07:15 Pulse 83 07/19/19 09:00 Resp 20 07/19/19 09:00 BP 125/65 07/19/19 09:00 Pulse Ox 92 07/19/19 09:00 Results - Laboratory Findings CBC and BMP: 07/19/19 05:20 07/19/19 05:20 ABG ABG pH 7.37 pH Units (7.32-7.45) 07/17/19 06:55 ABG pCO2 63 mmHg (35-45) H 07/17/19 06:55 ABG pO2 82 mmHg (85-104) L 07/17/19 06:55 ABG O2 Saturation 95 % (95-98) 07/17/19 06:55 PT/INR, D-dimer PT 12.8 Seconds (9.4-12.1) H 07/15/19 22:17 Abnormal lab findings: Abnormal lab results RBC 3.76 M/mcL (3.82-4.97) L 07/18/19 03:25 Hgb 11.3 g/dL (11.5-15.4) L 07/19/19 05:20 Hct 33.2 % (35.3-44.9) L 07/17/19 04:00 MCHC 30.8 g/dL (31.6-35.5) L 07/19/19 05:20 RDW 14.7 % (11.5-14.5) H 07/19/19 05:20 Neutrophils # 9.8 K/mcL (1.6-8.9) H 07/17/19 04:00 Lymphocytes # 0.5 K/mcL (0.6-4.6) L 07/17/19 04:00 PT 12.8 Seconds (9.4-12.1) H 07/15/19 22:17 ABG pCO2 63 mmHg (35-45) H 07/17/19 06:55 ABG pO2 82 mmHg (85-104) L 07/17/19 06:55 ABG HCO3 36 mEq/L (21-27) H 07/17/19 06:55 ABG Total CO2 38 mEq/L (20-26) H 07/17/19 06:55 ABG O2 Saturation 89 % (95-98) L 07/17/19 04:29 ABG Base Excess 8 mEq/L (-2 to 3) H 07/17/19 06:55 Carbon Dioxide 39 mEq/L (23-29) H 07/19/19 05:20 Creatinine 0.56 mg/dL (0.60-1.20) L 07/18/19 03:25 BUN/Creatinine Ratio 31 (6-26) H 07/19/19 05:20 Glucose 136 mg/dL (70-105) H 07/17/19 04:00 POC Glucose 107 mg/dL (70-99) H 07/17/19 19:17 Calcium 8.2 mg/dL (8.6-10.3) L 07/18/19 11:50 B-Natriuretic Peptide 146 pg/mL (Less than 100) H 07/18/19 11:50 Free T3 2.23 pg/mL (2.50-3.90) L 07/16/19 09:57 Urine Protein 30 mg/dL (Neg-Trace) H 07/15/19 23:21 Urine Glucose (UA) 100 mg/dL (Normal) H 07/15/19 23:21 Urine Ketones 15 mg/dL (Negative) H 07/15/19 23:21 Urine Blood Large (Negative) H 07/15/19 23:21 Urine Microscopic RBC 30-50 per hpf (0-3) H 07/15/19 23:21 Ur Squamous Epith Cells Many per lpf (None-Few) H 07/15/19 23:21 Hyaline Casts Moderate per lpf (None-Few) H 07/15/19 23:21 Entero/Rhino (PCR) DETECTED (Not Detect) A 07/16/19 00:16 - Microbiology Findings Microbiology Findings: Microbiology, Last 48 Hours 07/15/19 23:21 Sputum Culture - Final Sputum - Clinical Findings Intake & Output: Intake & Output 07/18/19 07/19/19 07/19/19 23:59 07:59 15:59 Intake Total 240 / 240 Output Total 2200 / 2725 350 / 350 Balance -2200 / -2355 -350 / -110 240 / -110 Weight 79.6 kg - Attending Attestation I examined this patient and my medical decision-making was reviewed with the Resident Physician. I agree with the documented findings, disposition and treatment plan as described except to the extent set forth below. We independently had [id number] contact with the patient Patient seen and examined at bedside Labs, radiology, chart personally reviewed. Impression/Recs: #Acute on chronic hypoxic hypercapnic respiratory failure - stable off noninvasive ventilation okay to him move out of the ICU she will benefit from non noninvasive ventilation at night for now and would likely benefit from outpatient sleep study #COPD with acute exacerbation - oral prednisone 40 mg which can be tapered over the next 2 weeks she will need pulmonary follow-up for optimization of her ma nagement and would continue Symbicort for now she will go back to her home regimen of ICS/LABA + LAMA. Okay to complete 5 day course of macrolide for anti-inflammatory properties #Tobacco addiction: -Tobacco cessation counseling given
[2019-07-19] MEDS: Budesonide/Formoterol 160/4.5 1 PUFF INH IH SCH ×2 (07:20→20:12)
[2019-07-19] MEDS: amLODIPine 5 MG TABLET PO SCH (08:28)
[2019-07-19] MEDS: ALPRAZolam 0.25 MG TABLET PO PRN ×2 (08:28→22:19)
[2019-07-19] MEDS: Pantoprazole 40 MG VIAL IVP SCH (08:28)
[2019-07-19] MEDS: Aspirin 81 MG TAB.CHEW PO SCH (08:28)
[2019-07-19] MEDS: Metoprolol XL (24 HR) Succ 50 MG TAB.ER.24H PO SCH ×2 (08:28→19:53)
[2019-07-19] MEDS: Chlorhexidine Rinse 15 ML MOUTHWASH MM SCH (08:29)
[2019-07-19] MEDS: Azithromycin 500 MG in 0.9 % Sodium Chloride 250 ML IVPB SCH (08:29)
[2019-07-19] MEDS ORDERED: Albuterol 2.5 MG/3 ML NEBULIZER IH PRN (13:20)
--- NOTE | 2019-07-19 14:25 | Internal Med Progress Note ---
Hospitalist Progress Note - Encounter Date of Encounter: 07/19/19 Time of Encounter: 07:45 - Subjective Interval History: Patient doing better today, alert, and in no distress. She has minimal SOB, no CP, mild cough. Appetite is better. She denies CP. Discussed with Dr. Charles and MDR team. Will transfer to step down unit today and continue/wean current measures. - Exam Vitals: Temp Pulse Resp BP Pulse Ox 98.6 F 92 24 155/91 90 07/19/19 07:15 07/19/19 12:00 07/19/19 12:00 07/19/19 12:00 07/19/19 12:00 Exam: General: NAD; audibly wheezing (?baseline) HEENT: no icterus, neck supple, moist mucosa Chest: diffuse wheezing and prolonged expiratory phase, much improved air movement/flow; RRR Abdomen: soft, NT, ND, + BS, No HSMG Ext: trace edema; equal pulses; no calf pain Neuro: A&Ox3; no focal deficits; no somnolence Skin: warm and dry - Assessment and Plan (1) COPD exacerbation Current Visit: Yes Status: Acute Assessment and Plan: 1. Continue IV steroids; likely taper steroids further tomorrow. 2. Scheduled and PRN aerosols ordered. 3. Complete 5 days of Zithromax. 4. On Symbicort. 5. Wean oxygen to baseline of 3 L O2 NC as able. 6. BiPAP QHS and PRN. 7. Transfer to step-down unit. (2) Acute respiratory failure with hypercapnia Current Visit: Yes Status: Acute Assessment and Plan: 1. Extubated 2 days ago; much improved. 2. Continue care as above. 3. Outpatient follow up with Pulmonary. (3) Graves disease Current Visit: Yes Status: Acute Assessment and Plan: 1. Continue home Synthroid. (4) Hypertension Current Visit: Yes Status: Chronic Assessment and Plan: 1. Monitor BP and adjust home meds as necessary. (5) DVT prophylaxis Current Visit: Yes Status: Acute Assessment and Plan: 1. Heparin SQ. - Time Spent with Patient Total time spent is greater than 50% in coordination of care (as documented) at patient's floor/unit and/or counseling patient: Plan of Care Discussed with: other (patient, MDR team, and Dr. Young) Internal Medicine: Result - Labs CBC & Chem 7: 07/19/19 05:20 07/19/19 05:20 Labs: Short CBC 07/19/19 Range/Units 05:20 WBC 8.1 (4.3-11.1) K/mcL Hgb 11.3 L (11.5-15.4) g/dL Hct 36.7 (35.3-44.9) % Plt Count 222 (140-400) K/mcL Neutrophils # 5.4 (1.6-8.9) K/mcL BMP 07/19/19 05:20 Sodium 143 Potassium 3.5 Chloride 98 Carbon Dioxide 39 H BUN 21 Creatinine 0.67 Glucose 85 Calcium 8.7 - ABG Interpretation ABG results: ABG ABG pH 7.37 pH Units (7.32-7.45) 07/17/19 06:55 ABG pCO2 63 mmHg (35-45) H 07/17/19 06:55 ABG pO2 82 mmHg (85-104) L 07/17/19 06:55 ABG O2 Saturation 95 % (95-98) 07/17/19 06:55 PT/INR, D-dimer PT 12.8 Seconds (9.4-12.1) H 07/15/19 22:17 - Impressions Impressions Echocardiogram 07/18/19 16:58 Impressions: LVEF 65-70%. Mild left ventricular diastolic dysfunction. Normal right ventricular structure and function. No significant valvular dysfunction. No evidence of pulmonary hypertension. Left Ventricular Wall Motion: Rest Echo Findings All wall segments showed normal motion. Findings: Study Quality * Technically adequate exam. ECG Findings * Normal sinus rhythm. Left Ventricle * LVEF 65-70%. * Normal LV chamber size, wall thickness and systolic function. * Mild left ventricular diastolic dysfunction. * Definity echo contrast was used. Right Ventricle * Normal right ventricular structure and function. Left Atrium * Normal left atrial size. Right Atrium * Normal right atrial size. Interatrial Septum * Interatrial septum not well evaluated. Aortic Valve * Aortic valve not well visualized. * Mildly calcified aortic valve leaflets. * No aortic stenosis. * No aortic regurgitation. Mitral Valve * Normal mitral valve structure. * No mitral stenosis. * Trace mitral regurgitation. Tricuspid Valve * Normal tricuspid valve structure. * No tricuspid stenosis. * Trace tricuspid regurgitation. * Unable to estimate RVSP due to lack of TR jet. * No evidence of pulmonary hypertension. * Estimated RA pressure is 3 mmHg. Pulmonic Valve * Pulmonic valve is not well visualized. * No pulmonic stenosis. * No pulmonic regurgitation. Aorta * Normally sized aortic root. Pericardium * The pericardium appears normal. IVC * The IVC is not dilated. * > 50% respiratory change Consult Discharge Plan - Plan Referrals: NONE,PCP [Primary Care Provider] - (4) Hypertension Qualifiers: Hypertension type: essential hypertension Qualified Code(s): I10 - Essential (primary) hypertension
[2019-07-20] MEDS: Ipratropium/Albuterol Neb 3 ML IH SCH ×6 (00:23→20:26)
[2019-07-20] MEDS: MethylPREDNISolone 40 MG/ML VIAL IVP SCH (06:15)
[2019-07-20] MEDS: *HR* Heparin 5,000 UNIT/ML VIAL SQ SCH ×3 (06:15→22:35)
[2019-07-20] MEDS: Budesonide/Formoterol 160/4.5 1 PUFF INH IH SCH ×2 (07:16→20:26)
[2019-07-20] MEDS: Aspirin 81 MG TAB.CHEW PO SCH (07:53)
[2019-07-20] MEDS: amLODIPine 5 MG TABLET PO SCH (07:53)
[2019-07-20] MEDS: Metoprolol XL (24 HR) Succ 50 MG TAB.ER.24H PO SCH ×2 (07:53→19:51)
[2019-07-20] MEDS ORDERED: Azithromycin 500 MG in 0.9 % Sodium Chloride 250 ML IVPB SCH (09:00)
[2019-07-20] MEDS ORDERED: Pantoprazole 40 MG VIAL IVP SCH (09:00)
[2019-07-20] MEDS ORDERED: Azithromycin 250 MG TABLET PO ONE (09:41)
[2019-07-20] MEDS: predniSONE 20 MG TABLET PO SCH (10:52)
[2019-07-20] MEDS: Artificial Tears SOLN 15 ML BOTTLE BOTH EYES SCH (13:30)
--- NOTE | 2019-07-20 14:18 | Internal Med Progress Note ---
Hospitalist Progress Note - Encounter Date of Encounter: 07/20/19 Time of Encounter: 14:18 - Subjective Interval History: Patient seen and examined. No acute events overnight. Patient states she is feeling better but still not back to baseline. She gets SOB with minor ambulation. - Exam Vitals: Temp Pulse Resp BP Pulse Ox 97.8 F 77 18 149/73 91 07/20/19 11:31 07/20/19 11:31 07/20/19 11:53 07/20/19 11:31 07/20/19 11:53 Exam: GENERAL APPEARANCE: Well developed, well nourished, alert and cooperative, and appears to be in no acute distress. HEENT: Normocephalic/atraumatic, PERRLA. NECK: Supple, nontender without lymphadenopathy. CARDIOVASCULAR: Normal S1, S2; regular rate and rhythm; no murmurs. RESPIRATORY: Poor historian effort; bilateral air entry present; minimal expiratory wheeze diffusely ABDOMEN: Soft, nondistended, nontender; bowel sounds present. MUSKULOSKELETAL: No limitations in range of motion. EXTREMITIES: No edema, clubbing. NEUROLOGICAL: No focal neurological deficits. SKIN: Skin normal color, texture and turgor with no lesions or eruptions. PSYCHIATRIC: Judgment and reasoning; no hallucinations; normal affect. - Assessment and Plan (1) Acute respiratory failure with hypercapnia Current Visit: Yes Status: Acute Assessment and Plan: Patient transferred from ICU today after being extubated 07/17/2019 for COPD exacerbation Still on 4.5 L NC; baseline 3L Patient is getting better Plan: Continue to wean O2 as needed See below for treatment of COPD exacerbation (2) COPD exacerbation Current Visit: Yes Status: Acute Assessment and Plan: History of O2 dependent COPD currently on 3 L nasal cannula at home presenting with findings consistent with COPD exacerbation with increased wheezing, cough and CO2 retention. Chest x-ray otherwise unremarkable. Patient had pulmonary function testing in 2018 which at this time showed severe to very severe airway obstruction with minimal response to bronchodilators. Although patient has documentation in her records as being an active smoker, I spoke with patient's granddaughter who stated that she currently lives with her uncle and as far as a no there been no reports of her smoking as of late. Unclear if there was a precipitating event however chest x-ray did not reveal any evidence of pneumonia. She did have a mild leukocytosis of 14. Patient now extubated and slowly improving -Continue scheduled duonebs -Continue steroids; monitor blood sugars -BIPAP at night; continue NC O2 during day and wean to home 3L as tolerated -Last dose of azithromycin today (3) Hypertension Current Visit: Yes Status: Chronic (4) Graves disease Current Visit: Yes Status: Acute Assessment and Plan: continue home levothyroxine (5) DVT prophylaxis Current Visit: Yes Status: Acute Assessment and Plan: Subcutaneous heparin (6) Rhinovirus infection Current Visit: Yes Status: Acute Assessment and Plan: On admission, patient found to have rhinovirus: potentially what precipitated COPD exacerbation Plan: supportive care - Time Spent with Patient Total time spent is greater than 50% in coordination of care (as documented) at patient's floor/unit and/or counseling patient: 35 minutes Plan of Care Discussed with: patient Internal Medicine: Result - Labs CBC & Chem 7: 07/19/19 05:20 07/19/19 05:20 - ABG Interpretation ABG results: ABG ABG pH 7.37 pH Units (7.32-7.45) 07/17/19 06:55 ABG pCO2 63 mmHg (35-45) H 07/17/19 06:55 ABG pO2 82 mmHg (85-104) L 07/17/19 06:55 ABG O2 Saturation 95 % (95-98) 07/17/19 06:55 PT/INR, D-dimer PT 12.8 Seconds (9.4-12.1) H 07/15/19 22:17 Consult Discharge Plan - Plan Referrals: Chris Willis, DO [Non-Partnered Physician] - (3) Hypertension Qualifiers: Hypertension type: essential hypertension Qualified Code(s): I10 - Essential (primary) hypertension
[2019-07-20] MEDS: ALPRAZolam 0.25 MG TABLET PO PRN ×2 (17:53→22:35)
[2019-07-21] MEDS: Ipratropium/Albuterol Neb 3 ML IH SCH ×4 (00:11→11:12)
[2019-07-21] MEDS: *HR* Heparin 5,000 UNIT/ML VIAL SQ SCH ×2 (05:59→13:30)
[2019-07-21] MEDS: Budesonide/Formoterol 160/4.5 1 PUFF INH IH SCH (08:04)
[2019-07-21] MEDS: Aspirin 81 MG TAB.CHEW PO SCH (08:25)
[2019-07-21] MEDS: amLODIPine 5 MG TABLET PO SCH (08:25)
[2019-07-21] MEDS: predniSONE 20 MG TABLET PO SCH (08:25)
[2019-07-21] MEDS: Metoprolol XL (24 HR) Succ 50 MG TAB.ER.24H PO SCH (08:26)
[2019-07-21 11:19] VITALS: BP 145/76
--- NOTE | 2019-07-21 12:27 | Discharge Summary ---
- NOTES TO OUTPATIENT PROVIDER Notes to Outpatient Provider: COPD exacerbation 2/2 rhinovirus requiring intubation, home O2 increased to 4L Date of Encounter: 07/21/19 Time of Encounter: 12:05 Hospital course: Dear Doctors, I recently had the opportunity to care for this patient during their recent hospital stay at [facility]. Chetna Hanks is a 69 F w hx COPD on 3.5L and NIPPV qhs, HTN, Graves, obesity, who presented at the time of admission with SOB, cough, and wheezing. She was found to be profoundly dyspneic, with increased work of breathing, and an ABG showing pH 7.25 and pCO2 95 for which she was intubated and placed in ICU. She was found to be positive for rhinovirus as likely causative factor. She improved with ventilation, nebs, steroids, and azithro, and was extubated after two days. After transfer to the floor, patient continued to improve. On day of discharge, she qualified for 4L to maintain sats with exertion. She will continue on PO prednisone for an additional 5 days. Close PCP and/or Pulm follow up. Dx: Rhinovirus infection, COPD exacerbation, acute on chronic hypoxic and hypercapneic respiratory failure Pertinent tests/consults: Pulm consult Follow up: PCP 1-2 weeks, Pulm 3-4 weeks Tests pending: none Med changes: prednisone 40 daily, last dose 07/26 Mental status: awake, fully oriented Code status: Greens Picker spent on discharge: 35 minutes It has been my pleasure participating in this patient's care. Please contact me with any questions or concerns regarding their hospital stay. Sincerely, Tommy Fonseca MD - Discharge Medications Prescriptions: New predniSONE [PredniSONE] 40 mg PO DAILY #10 tablet Oxygen 4 each .ROUTE AD #4 each Continued Acetylcysteine [E-Nzvzhv-x-Cysteine] 600 mg PO BID Ipratropium/Albuterol Neb [Duoneb] 3 ml IH QID PRN PRN Reason: Shortness Of Breath Potassium Chloride [Klor-Con 10] 10 meq PO Q48H Furosemide [Lasix] 40 mg PO Q48H Umeclidinium [place] [Incruse Ellipta] 62.5 mcg IH DAILY Simvastatin [Zocor] 20 mg PO HS Budesonide/Formoterol 160/4.5 [Symbicort 160/4.5] 2 puff PO BID Metoprolol Succinate [Toprol Xl] 100 mg PO BID Levothyroxine [Synthroid] 75 mcg PO QAM amLODIPine [Norvasc] 5 mg PO DAILY Albuterol Sulfate [Ventolin Hfa] 2 puff PO QID PRN PRN Reason: Shortness Of Breath Montelukast [Singulair] 10 mg PO DAILY PRN PRN Reason: Allergy Symptoms ALPRAZolam [Xanax 0.25 MG Tablet] 0.25 mg PO TID PRN PRN Reason: Anxiety Aspirin 81 mg PO DAILY Discontinued Azithromycin [Azithromycin 6-Tab Pack] 250 mg PO AD Home Medications: ALPRAZolam [Xanax 0.25 MG Tablet] 0.25 mg PO TID PRN 07/16/19 [History] Acetylcysteine [L-Wgcvsn-j-Cysteine] 600 mg PO BID 07/16/19 [History] Albuterol Sulfate [Ventolin Hfa] 2 puff PO QID PRN 07/16/19 [History] Aspirin 81 mg PO DAILY 07/16/19 [History] Budesonide/Formoterol 160/4.5 [Symbicort 160/4.5] 2 puff PO BID 07/16/19 [History] Furosemide [Lasix] 40 mg PO Q48H 07/16/19 [History] Ipratropium/Albuterol Neb [Duoneb] 3 ml IH QID PRN 07/16/19 [History] Levothyroxine [Synthroid] 75 mcg PO QAM 07/16/19 [History] Metoprolol Succinate [Toprol Xl] 100 mg PO BID 07/16/19 [History] Montelukast [Singulair] 10 mg PO DAILY PRN 07/16/19 [History] Potassium Chloride [Klor-Con 10] 10 meq PO Q48H 07/16/19 [History] Simvastatin [Zocor] 20 mg PO HS 07/16/19 [History] Umeclidinium [place] [Incruse Ellipta] 62.5 mcg IH DAILY 07/16/19 [History] amLODIPine [Norvasc] 5 mg PO DAILY 07/16/19 [History] Oxygen 4 each .ROUTE AD #4 each 07/21/19 [Rx] predniSONE [PredniSONE] 40 mg PO DAILY #10 tablet 07/21/19 [Rx] Allergies/Adverse Reactions: Allergy/AdvReac Type Severity Reaction Status Date / Time No Known Allergies Allergy Verified 07/15/19 22:35 Date of admission: 07/15/19 21:44 Primary care physician: PCP NONE Consults: 07/15/19 22:05 Consult to Nurse Navigator [CONS] Routine Comment: 07/15/19 22:15 Consult to Critical Care [CONS] Routine Consulting Provider: Pulm Crit Care & Sleep [facility] Reason for Consult: Acute Hypoxic/hypercapnic resp. Failure likely 2/2 COPD Exacerbation Call Completed: No 07/20/19 07:55 Consult to Occupational Therapy [CONS] Routine Comment: Evaluate, develop and implement POC Reason for Consult: Weakness Does patient have active BEDREST order?: No Is patient medically & hemodynamically stable?: Yes Consult to Physical Therapy [CONS] Routine Comment: Evaluate, develop and implement POC Reason for Consult: Weakness Does patient have active BEDREST order?: No Is patient medically & hemodynamically stable?: Yes - Constitutional Vitals: Temp Pulse Resp BP Pulse Ox 97.7 F 77 18 145/76 95 07/21/19 11:15 07/21/19 11:15 07/21/19 11:15 07/21/19 11:15 07/21/19 11:15 Exam: General: NAD, good eye contact, elderly, anxious HEENT: +exopthalmos Thoracic: diffuse expiratory wheezing with forced exhalation, prolonged expiratory phase Cardio: Normal S1 and S2, regular rate and rhythm, no murmurs Abdomen: Soft, nontender Extremities: Warm, well perfused. DP pulses 2+ b/l. No edema. Neuro: Awake, fully oriented. Speech fluent - Patient Status Disposition: Home Health Service Condition: Fair Functional capacity at discharge: uses cane/walker Overall status at discharge: patient is progressing back to baseline - Discharge Instructions Instructions: Acute Respiratory Distress Syndrome (DC), Chronic Obstructive Pulmonary Disease (DC), Chronic Hypertension (DC) Follow Up With: Chris Willis DO [Non-Partnered Physician] - 07/28/19 11:30 am (Please follow up as schedule..) Lupillo Young MD [Partnered Physician] - (web request 07/21/2019) - Diet and Activity Activity: resume usual activities as tolerated Diet: advance to your usual diet
[2019-07-21] MEDS ORDERED: FLU Vac QV 19-20 (6Month+)/PF 0.5 ML SYRINGE IM ONE (13:25)
--- NOTE | 2019-07-21 19:01 | Physician Discharge Referral ---
Home Health/Hosp Referral Info Transfer to: Home Health Provider in Charge Post Discharge: PCP - Respiratory Orders Oxygen / L per min (4L, and NIPPV at night) Smoking Cessation: Smoking cessation has been advised. For more information, call the [place] Tobacco Quit Line at 6-241-FSFJ-NOW. - Diet/Nutrition Diet/Nutrition Orders: Cardiac, No Concentrated Sweets - Activity Activity Orders: Up ad caron - Services Needed Following services are medically necessary services: Nursing - Transfer Medications Prescriptions: Oxygen 4 each .ROUTE AD #4 each predniSONE [PredniSONE] 40 mg PO DAILY #10 tablet Transmission Status: Received by [address] Medications: ALPRAZolam [Xanax 0.25 MG Tablet] 0.25 mg PO TID PRN 07/16/19 [History] Acetylcysteine [X-Fyjdsz-l-Cysteine] 600 mg PO BID 07/16/19 [History] Albuterol Sulfate [Ventolin Hfa] 2 puff PO QID PRN 07/16/19 [History] Aspirin 81 mg PO DAILY 07/16/19 [History] Budesonide/Formoterol 160/4.5 [Symbicort 160/4.5] 2 puff PO BID 07/16/19 [History] Furosemide [Lasix] 40 mg PO Q48H 07/16/19 [History] Ipratropium/Albuterol Neb [Duoneb] 3 ml IH QID PRN 07/16/19 [History] Levothyroxine [Synthroid] 75 mcg PO QAM 07/16/19 [History] Metoprolol Succinate [Toprol Xl] 100 mg PO BID 07/16/19 [History] Montelukast [Singulair] 10 mg PO DAILY PRN 07/16/19 [History] Potassium Chloride [Klor-Con 10] 10 meq PO Q48H 07/16/19 [History] Simvastatin [Zocor] 20 mg PO HS 07/16/19 [History] Umeclidinium [place] [Incruse Ellipta] 62.5 mcg IH DAILY 07/16/19 [History] amLODIPine [Norvasc] 5 mg PO DAILY 07/16/19 [History] Oxygen 4 each .ROUTE AD #4 each 07/21/19 [Rx] predniSONE [PredniSONE] 40 mg PO DAILY #10 tablet 07/21/19 [Rx] Allergies/Adverse Reactions: Allergy/AdvReac Type Severity Reaction Status Date / Time No Known Allergies Allergy Verified 07/15/19 22:35 Certification: Further, I certify that my clinical findings support that this patient is homebound (i.e. absences from home require considerable and taxing effort and are for medical reasons or episcopal services or infrequently or short duration when for other reasons) because: Homebound Reason: Severity of cardiac or pulmonary status limits activity tolerance Attestation: My signature below is to certify that this patient is under my care and that I, or nurse practitioner, or a physician's hair or beauty salon assistant working with me, has a [id number] encounter with this patient.
== END 2019-07-21 14:34 | disposition home health service (06) | DRG 208 ==
LOC: SUATTDRO 21:44 → ICNU 21:44 → 2NNU 07-19 17:28 → 2ANU 07-21 10:32
PROVIDERS: ADMIT Internal Medicine; ATTEND Internal Medicine